=== PATIENT | female | born 1975 | race Caucasian/White ===

== ENCOUNTER → 2020-06-16 16:59 | Outpatient (CLI) | payer OTHER, SELFPAY ==
[2020-06-16 19:56] LABS: Thyroid Stimulating Hormone 0.55 uIU/mL (0.465-4.68)
[2020-06-19 15:05] LABS: Anti-Centromere B Antibodies <0.2 AI (0.0-0.9); Anti-Jo-1 <0.2 AI (0.0-0.9); Anti-Smith Antibody <0.2 AI (0.0-0.9); Antichromatin Antibodies <0.2 AI (0.0-0.9); Antiscleroderma-70 Antibodies <0.2 AI (0.0-0.9); RNP Antibodies 0.4 AI (0.0-0.9); Sjogren's Anti-SS-A <0.2 AI (0.0-0.9); Sjogren's Anti-SS-B <0.2 AI (0.0-0.9)
[2020-06-19 17:21] LABS: Anti-DNA (DS) Ab Qn 2 IU/mL (0-9)
== END ==
PROVIDERS: Visit Provider Family Medicine
DX: E03.9 Hypothyroidism, unspecified (principal); G43.509 Persistent migraine aura without cerebral infarction, not intractable, without status migrainosus
CPT/HCPCS: 84443; 86225; 86235

== ENCOUNTER → 2021-02-17 11:22 | Outpatient (CLI) | payer OTHER, SELFPAY | PROVIDERS: PCP Family Medicine; Visit Provider Family Medicine | DX: Z20.822 Contact with and (suspected) exposure to COVID-19 (principal) | CPT/HCPCS: U0003 ==

== ENCOUNTER → 2021-02-18 13:42 | Outpatient (CLI) | payer OTHER, SELFPAY ==
[2021-02-18 14:04] LABS: Hemoglobin A1C 5.6 % (4.0-6.0)
[2021-02-18 15:50] LABS: Thyroid Stimulating Hormone 0.32 uIU/mL (0.465-4.68)
[2021-02-18 16:08] LABS: Vitamin B12 297 pg/mL (239-931)
== END ==
LOC: LAB.DROPOF 13:43
PROVIDERS: Visit Provider Family Medicine
DX: J32.9 Chronic sinusitis, unspecified (principal)
CPT/HCPCS: 82607; 83036; 84443

== ENCOUNTER 2021-04-14 11:09 | Emergency (ER) | payer OTHER, SELFPAY ==
[2021-04-14] VITALS (9 sets, daily range): BP systolic 117–138; BP diastolic 74–97; PULSE 59–77; RESP 12–18; TEMP 36.6; O2SAT 93–100; BMI 20.3
--- NOTE | 2021-04-14 11:06 | ECG_ITS ---
APPROVED REPORT Exam: Resting ECG HR:68 bpm ECG Measurements Heart Rate 68 AXES WV 164 P 14 QRSd 68 QRS 74 QT 396 T 48 QTc 421 Conclusion Normal sinus rhythm Normal ECG Electronically signed by : Kash Arroyo MD 04/15/2021 17:29:09
--- NOTE | 2021-04-14 11:12 | XR_ITS ---
PROCEDURE: XR CHEST 2V CLINICAL HISTORY: cp sob COMPARISON: No exams were available for comparison FINDINGS: The cardiomediastinal silhouette and pulmonary vascularity are within normal limits. The lungs are clear without infiltrates, suspicious nodules, or pleural effusions. Minimal atelectatic or fibrotic change in the left lung base. No evidence of pneumothorax. Suspect small hiatal hernia. IMPRESSION: No evidence of pneumothorax or other acute anomaly. Dictated by: Loc Monte MD 04/14/2021 11:49 Loc Monte MD in [place] 04/14/2021 11:49
--- NOTE | 2021-04-14 11:25 | HMH.EDCP ---
ED Disposition Clinical Impression: Nonspecific chest pain Disposition: Home, Self-Care Condition on Discharge: Good Instructions: DI for Atypical Chest Pain Referrals: Provider,MD Akil [Primary Care Provider] - Henry Trevizo MD [Staff Physician] - - Critical Care Critical Care Time: No Attestation: On , the high probability of a clinically significant, sudden or life threatening deterioration of the following system(s) required my full and direct attention, intervention and personal management. The time I documented below is in addition to time spent performing reported procedures but includes the following listed in this critical care notation. Medical Decision Making - Medical Records Medical records reviewed: Yes: I reviewed the patient's medical records. - [place] Inquiry Pt receiving controlled substance: No Vital Signs: 04/14/21 11:09 04/14/21 11:30 04/14/21 12:00 Temperature 97.9 F Temperature Source Oral Pulse Rate 65 59 L Pulse Rate [Right Radial] 71 Respiratory Rate 18 12 14 Blood Pressure 120/97 H 120/97 H Blood Pressure [Right Arm] 117/74 Blood Pressure Mean Blood Pressure Mean [Right Arm] 88 Blood Pressure Source [Right Arm] Automatic Cuff Blood Pressure Position [Right Arm] Sitting 02 Sat by Pulse Oximetry 98 98 100 Oxygen Delivery Method Room Air Room Air 04/14/21 12:36 04/14/21 13:00 04/14/21 13:31 Temperature Temperature Source Pulse Rate 77 62 Pulse Rate [Right Radial] Respiratory Rate 16 16 16 Blood Pressure 136/84 138/82 138/85 Blood Pressure [Right Arm] Blood Pressure Mean 114 Blood Pressure Mean [Right Arm] Blood Pressure Source [Right Arm] Blood Pressure Position [Right Arm] 02 Sat by Pulse Oximetry 93 L 100 Oxygen Delivery Method 04/14/21 14:00 04/14/21 14:30 Temperature Temperature Source Pulse Rate 60 59 L Pulse Rate [Right Radial] Respiratory Rate 18 16 Blood Pressure 137/87 120/80 Blood Pressure [Right Arm] Blood Pressure Mean 110 93 Blood Pressure Mean [Right Arm] Blood Pressure Source [Right Arm] Blood Pressure Position [Right Arm] 02 Sat by Pulse Oximetry 99 Oxygen Delivery Method - Lab Data Lab Results 04/14/21 11:43: SARS-CoV-2 (PCR) Not detected, Influenza A Untype (PCR) Not detected, Influenza Type B (PCR) Not detected 04/14/21 11:46: WBC 8.3, RBC 4.66, Hgb 13.9, Hct 43.0, MCV 92.2, MCH 29.8, MCHC 32.3, RDW 13.0, Plt Count 400, MPV 8.1, Neut % (Auto) 68.7, Lymph % (Auto) 24.7, [place] % (Auto) 4.4, Eos % (Auto) 1.5, Baso % (Auto) 0.7, Neut # (Auto) 5.7, Lymph # (Auto) 2.1, [place] # (Auto) 0.4, Eos # (Auto) 0.1, Baso # (Auto) 0.1 04/14/21 11:46: Sodium 138, Potassium 4.2, Chloride 103, Carbon Dioxide 25, Anion Gap 14.2, BUN 11, Creatinine 0.60, Estimated Creat Clear 109, Estimated GFR 108, Est GFR ( Amer) 130, Glucose 99, Calcium 9.3, Troponin I < 0.01 04/14/21 14:05: Troponin I < 0.01 Result diagrams: 04/14/21 11:46 04/14/21 11:46 Orders (Tests/Meds): ED MEDICATIONS Discontinued Medications Generic Name Dose Route Start Last Admin Trade Name Freq PRN Reason Stop Dose Admin Iopamidol 70 ml 04/14/21 12:33 04/14/21 12:34 Iopamidol-370 (76%);100ml Bottle IV 04/14/21 12:34 70 ml ONCE ONE Administration Sodium Chloride 50 ml 04/14/21 12:33 04/14/21 12:34 0.9 % Sodium Chloride 50 Ml Vial IV 04/14/21 12:34 50 ml ONCE ONE Administration Sodium Chloride 10 ml 04/14/21 12:33 04/14/21 12:34 Sodium Chloride 0.9% 10ml Syr (Rad Only) IV 04/14/21 12:34 10 ml ONCE ONE Administration ORDERS Category Date Time Status Troponin I Q3H Lab 04/14/21 17:15 Ordered - Radiology Data #1 Image(s): Chest Image Reviewed: Yes I reviewed the patient's radiology results, Yes I reviewed the patient's radiology image, Yes I have reviewed radiologist's interpretation Preliminary Findings: Normal/NAD - CT Data CT Scan: Chest Time Re
--- NOTE | 2021-04-14 11:53 | CT_ITS ---
PROCEDURE: CT ANGIO CHEST PE PROTOCOL CLINCIAL INDICATION: SOB, chest pain COMPARISON: CR XR CHEST 2V from 04/14/2021 TECHNIQUE: IV Contrast: 70ML Isovue 370 Axial images obtained with sagittal and coronal reformats. All CT scans at the facility use one or more dose reduction, viz: automated exposure control, ma/kV adjustment per patient size (including targeted exams where dose is matched to indication, i.e. head), or iterative reconstruction technique. FINDINGS: HEART AND MEDIASTINAL STRUCTURES: No evidence of pulmonary embolus, aortic aneurysm, or aortic dissection. Mildly prominent precarinal lymph nodes are present measuring 2.9 x 1.2 cm with calcification. Small aortopulmonic nodes are also noted. LUNGS AND PLEURAL SPACES: No lobar consolidation or collapse. In the right lung base along the hemidiaphragm centrally there is an area air density possibly due to small pneumatocele BONY STRUCTURES: No acute bony abnormalities apparent. 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 The SMA has an unremarkable appearance. There is a small hiatal hernia. ADDITIONAL FINDINGS: No other significant abnormalities. IMPRESSION: 1. No evidence of pulmonary embolus. 2. 2.2 x 1 cm area of air density along the right lung base at the diaphragmatic region with some pleural thickening at this area. This may be due to small pneumatocele. A tiny pneumothorax would be included in the differential diagnosis. A pneumoperitoneum is felt to be less likely. 3. Hiatal hernia 4. 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 Dictated by: Loc Monte MD 04/14/2021 13:04 Loc Monte MD in [place] 04/14/2021 13:04
[2021-04-14 11:54] LABS: Coronavirus 19, PCR Not Detected (NotDetected); Influenza A, PCR Not Detected (NotDetected); Influenza B, PCR Not Detected (NotDetected)
[2021-04-14 11:55] LABS: Basophils # 0.1 K/mm3 (0-0.2); Basophils % 0.7 % (0.1-2.0); Eosinophils # 0.1 K/mm3 (0.0-0.4); Eosinophils % 1.5 % (0.1-12.0); Hemoglobin 13.9 g/dL (12.2-16.2); Lymphocytes # 2.1 K/mm3 (0.7-4.5); Lymphocytes % 24.7 % (10-50); Mean Corpuscular HGB Conc 32.3 g/dL (31.8-35.4); Mean Corpuscular Hemoglobin 29.8 pg (27.0-31.2); Mean Corpuscular Volume 92.2 fl (81-99); Mean Platelet Volume 8.1 fl (7.4-10.4); Monocytes # 0.4 K/mm3 (0.1-1.0); Monocytes % 4.4 % (1.7-9.3); Neutrophils # 5.7 K/mm3 (1.8-7.8); Neutrophils % 68.7 % (37.0-80.0); Platelet Count 400 K/mm3 (142-424); Red Blood Count 4.66 M/mm3 (4.20-5.40); White Blood Count 8.3 K/mm3 (4.8-10.8)
[2021-04-14 12:00] LABS: Chloride 103 mmol/L (98-107); Potassium 4.2 mmoL/L (3.5-5.1); Sodium 138 mmol/L (136-145)
[2021-04-14 12:03] LABS: Anion Gap 14.2 mEq/L (5-15); Blood Urea Nitrogen 11 mg/dl (7-17); Calcium 9.3 mg/dl (8.4-10.2); Carbon Dioxide 25 mmol/L (22.0-30.0); Creatinine Clearance Estimated 109 mL/min (50-200); Estimated Glomerular Filt Rate 108 ml/min (>60); GFR (African American) 130 ML/MIN (>60); Glucose 99 mg/dl (74-100)
--- NOTE | 2021-04-14 12:10 | PC.NURSE ---
notified rad of CT order
[2021-04-14 12:18] LABS: Troponin I < 0.01 ng/ml (0.00-0.034)
[2021-04-14 14:43] LABS: Troponin I < 0.01 ng/ml (0.00-0.034)
== END 2021-04-14 15:18 | disposition home or self-care (01) ==
PROVIDERS: Emergency Provider Emergency Medicine
DX: R07.89 Other chest pain (principal); Z20.822 Contact with and (suspected) exposure to COVID-19; J44.9 Chronic obstructive pulmonary disease, unspecified; G43.709 Chronic migraine without aura, not intractable, without status migrainosus; Z88.0 Allergy status to penicillin; Z88.2 Allergy status to sulfonamides; Z88.8 Allergy status to other drugs, medicaments and biological substances
CPT/HCPCS: 36415; 71046; 71275; 80048; 84484; 85025; 93005; 99283; C9803; Q9967; U0003; U0005

== ENCOUNTER → 2021-04-15 13:04 | Outpatient (CLI) | payer OTHER, SELFPAY ==
--- NOTE | 2021-04-15 13:09 | XR_ITS ---
PROCEDURE: XR CHEST 2V CLINICAL HISTORY: r/o pneumothorax The the COMPARISON: CR XR CHEST 2V from 04/14/[address] ANGIO CHEST PE PROTOCOL from 04/14/2021 FINDINGS: The cardiomediastinal silhouette and pulmonary vascularity are within normal limits. The lungs are clear without infiltrates, suspicious nodules, or pleural effusions. No acute bony abnormalities. IMPRESSION: No acute findings. Dictated by: Loc Monte MD 04/15/2021 15:21 Loc Monte MD in [facility] 04/15/2021 15:21
== END ==
LOC: RAD 13:05
PROVIDERS: PCP Family Medicine; Visit Provider Physician Assistant
DX: R06.02 Shortness of breath (principal); Z87.09 Personal history of other diseases of the respiratory system
CPT/HCPCS: 71046

== ENCOUNTER → 2021-04-21 09:24 | Outpatient (CLI) | payer OTHER, SELFPAY ==
[2021-04-21 10:40] LABS: Alanine Aminotransferase 22 U/L (12-78); Albumin Level 4.5 g/dl (3.5-5.0); Alkaline Phosphatase 109 U/L (38-126); Aspartate Amino Transferase 25 U/L (14-36); Bilirubin,Direct 0.2 mg/dl (0.0-0.4); Bilirubin,Indirect 0.6 mg/dL (0.0-0.9); Bilirubin,Total 0.8 mg/dl (0.2-1.3); Bilirubin,Unconjugated 0.6 mg/dL (0.0-1.1); Chol/HDL Ratio 2.6 (1-3.5); Cholesterol 238 mg/dl (140-200); HDL Cholesterol 90 mg/dl (40-60); Triglycerides 184 mg/dl (30-150); VLDL Cholesterol 37 mg/dL (0-40)
[2021-04-21 10:51] LABS: Direct LDL Cholesterol 107.72 mg/dL (100-129)
== END ==
LOC: LAB 09:25
PROVIDERS: Visit Provider Nurse Practitioner Family
DX: R07.9 Chest pain, unspecified (principal)
CPT/HCPCS: 36415; 80061; 80076

== ENCOUNTER → 2021-04-26 13:24 | Outpatient (CLI) | payer OTHER, SELFPAY ==
--- NOTE | 2021-04-26 | CA_ITS ---
APPROVED REPORT Exam: Exercise Treadmill Technologist: Lotus Leonard Ht: 5 ft 7 in Wt: 134 lbs BSA: 1.71 m2 HR: 82 bpm BP: 114/73 mmHg Indications: Sinus Bradycardia, Chest pain Medical History Medications: Albuterol,,,,, ProMETHAZINE,,,,, INdomethacin,,,,, ClINDAMYCIN,,,,, Levothyoxine,,,,, Stress Test Details Test: Rayna HR Resting HR: 74 bpm Max Heart Rate (APMHR): 174 bpm Max HR Achieved: 167 bpm Target HR (85% APMHR): 147 bpm % of APMHR: 95 Recovery HR: 90 bpm BP Resting BP: 114.0/73.0 mmHg Max BP: 146.0/80.0 mmHg Recovery BP: 121.0/70.0 mmHg ECG Resting ECG: Normal sinus rhythm Clinical Reason for Termination: Dyspnea Exercise duration: 07:16 min Highest Stage Achieved: Exercise capacity: 10.1 METs Stress ECG Conclusion Negative stress test. Patient exercised on a rayna protocol for 7 minutes and 16 seconds to peak heart rate of 167 bpm (Target heart rate 148 bpm) without chest pain. Frequent PVC's and rare couplet noted in stress and recovery. 1.[address] segment depression infero-laterally at peak stress that resolved quickly in recovery. Total METS acheived was 10.1 with peak blood pressure 146/80 mmHg. No imaging. Normal exercise treadmill stress test. Test Summary REST . . . . . . . Sitting REST . . . . . . . Standing REST 07:03 0.0 0.0 74 . 114/ 73 . . Stage 1 01:00 10.0 1.7 104 . . . . Stage 1 02:00 10.0 1.7 119 . . . . Stage 1 03:00 10.0 1.7 124 . 128/ 80 . . Stage 2 01:00 12.0 2.5 147 . . . . Stage 2 02:00 12.0 2.5 149 . . . . Stage 2 03:00 12.0 2.5 150 . 140/ 90 . . Stage 3 01:00 14.0 3.4 166 . . . . Stage 3 01:16 14.0 3.4 167 . . . Stop exercise at 07:16 RECOVERY 01:00 0.0 0.0 136 . . . . RECOVERY 02:00 0.0 0.0 105 . 146/ 80 . . RECOVERY 03:00 0.0 0.0 105 . 146/ 80 . . RECOVERY 04:00 0.0 0.0 98 . 146/ 80 . . RECOVERY 05:00 0.0 0.0 93 . 146/ 80 . . RECOVERY 06:00 0.0 0.0 87 . 146/ 80 . . RECOVERY 06:33 0.0 0.0 88 . 146/ 80 . . Electronically signed by : Jett Verde MD 04/26/2021 18:17:01
--- NOTE | 2021-04-26 14:08 | CA_ITS ---
APPROVED REPORT EXAM: Comprehensive 2D, Doppler, and color-flow Echocardiogram Communications Program Manager: Svitlana Novak RDCS Ht: 5 ft 7 in Wt: 134lbs BSA: 1.71 BP: 126/74 mmHg Indications: CP,BRADYCARDIA,COPD,EX SMOKER,[place] 2D Dimensions LVOT 1.68 cm (M/F) 1.5-2.5 M-Mode Dimensions RVDd 2.05 cm (0.9-2.6) LA Diam 2.67 cm (1.9-4.0) LVDd 3.98 cm (3.5-5.7) Ao Diam 2.67 cm (2.0-3.7) LVDs 3.11 cm (3.5-5.7) IVSd 0.64 cm (0.6-1.1) PWd 0.57 cm (0.6-1.1) EF (Teich) 44.80% FS 21.90% EDV (Teich) 69.20 mL ESV (Teich) 38.20 mL LV Diastology E Decel Time 217.00 (160-240 msec) E/A Ratio 1.1 MED E' 13.00 (< 7 cm/sec) E'/MED E' Ratio 5.58 (>14) LAT E' 16.30 (<10 cm/sec) E/LAT E' Ratio 4.45 (>14) Mitral Valve MV E Max Ori. 73.00 (40-130 cm/s) MV A Velocity 67.00 (40-130 cm/s) E/A Ratio 1.08 MV Decel. Time 217.00 (160-240 ms) MV PHT 63.00 ms Left Ventricle Left atrium is normal size, left ventricle is normal size, there is no concentric left ventricular hypertrophy, visually estimated ejection fraction 55% with no regional wall motion abnormality, diastolic parameters are within normal range. Right Ventricle Right atrium and right ventricle are normal size and contractility. Aortic Valve Aortic valve is grossly normal, there is no aortic stenosis or aortic insufficiency. Mitral Valve Mitral valve grossly normal, there is trace mitral regurgitation. Tricuspid Valve Tricuspid valve grossly normal, there is trace tricuspid regurgitation, tricuspid regurgitation jet velocity is inadequate for calculation of the right ventricular systolic pressure. Pulmonic Valve Pulmonic valve is poorly visualized. Great Vessels Aortic root is normal size. Inferior vena cava is normal size with normal inspiratory collapse. Pericardium No significant pericardial effusion noted. Conclusion 1. Normal left ventricular size, preserved left ventricular systolic function, visually estimated ejection fraction 55% with no regional wall motion abnormality, diastolic parameters are within normal range. 2. Trace mitral and tricuspid regurgitation. 3. No significant pericardial effusion noted. 4. Inferior vena cava is normal size with normal inspiratory collapse. Electronically signed by : Jett Verde MD 04/26/2021 19:14:33
== END ==
PROVIDERS: PCP Family Medicine; Visit Provider Nurse Practitioner Family
DX: R00.1 Bradycardia, unspecified (principal); J44.9 Chronic obstructive pulmonary disease, unspecified; M79.602 Pain in left arm; Z87.891 Personal history of nicotine dependence; R07.89 Other chest pain
CPT/HCPCS: 93017; 93306

== ENCOUNTER → 2021-10-14 14:12 | Outpatient (CLI) | payer OTHER, SELFPAY ==
--- NOTE | 2021-10-14 14:13 | MR_ITS ---
FINAL REPORT CLINICAL HISTORY: attn: pituitary. F/U PITUITARY TUMOR. CHRONIC MIGRAINE. 13ML PROHANCE GIVEN. FINDINGS: Multiplanar MR imaging of the brain was performed without and with contrast. There is no evidence of intracranial hemorrhage or mass. There are a few small scattered foci of increased signal in the deep white matter bilaterally, nonspecific. No abnormal extra-axial fluid collection is seen. The ventricular size is within normal limits. There is no evidence of shift of the midline structures. The posterior fossa and brainstem have an unremarkable appearance. No area of abnormal restricted diffusion is identified. The pituitary infundibulum lies midline. There is a mass in the pituitary which is ovoid and partially bilobed measuring approximately 8 mm in transverse dimension and 4 mm in craniocaudal dimension. Finding is well-seen on image 5 of series 14 and image 7 of series 15, probably represents a microadenoma. No other abnormal enhancement is identified. IMPRESSION: 8 mm x 4 mm pituitary nodule, favor to represent an adenoma. No priors are available for direct comparison. Mild abnormal signal in the deep white matter which is nonspecific, probably due to chronic microvascular ischemia. Reviewed, Interpreted and Dictated by Sukhi Drew MD Transcribed by Jannie Rodrigues Authenticated by Sukhi Drew MD on 10/14/2021 04:38:50 PM [facility]
== END ==
LOC: RAD 14:13
PROVIDERS: PCP Family Medicine; Visit Provider Family Medicine
DX: D35.2 Benign neoplasm of pituitary gland (principal)
CPT/HCPCS: 70553; A9576

== ENCOUNTER 2021-11-15 16:47 | Emergency (ER) | payer OTHER, SELFPAY ==
[2021-11-15 16:48] VITALS: BP 139/89; PULSE 64; RESP 16; TEMP 36.5; O2SAT 98; BMI 21.9
--- NOTE | 2021-11-15 17:25 | PC.NURSE ---
notified ER MD of pt presenting symptom of LUE tingling, ER MD states not to order head CT at this time for pt.
--- NOTE | 2021-11-15 17:30 | ECG_ITS ---
APPROVED REPORT Exam: Resting ECG HR:55 bpm ECG Measurements Heart Rate 55 AXES WA 172 P 66 QRSd 80 QRS 54 QT 423 T 47 QTc 413 Conclusion SINUS BRADYCARDIA LOW QRS VOLTAGE IN PRECORDIAL LEADS [QRS DEFLECTION < 1.0 mV IN CHEST LEADS] BORDERLINE ECG UNCONFIRMED REPORT Electronically signed by : Kash Arroyo MD 11/18/2021 08:07:52
[2021-11-15 17:47] LABS: Basophils # 0.2 K/mm3 (0-0.2); Basophils % 1.2 % (0.1-2.0); Eosinophils # 0.1 K/mm3 (0.0-0.4); Hematocrit 40.8 % (37.0-47.0); Hemoglobin 13.5 g/dL (12.2-16.2); Lymphocytes % 28.4 % (10-50); Mean Corpuscular HGB Conc 33.2 g/dL (31.8-35.4); Mean Corpuscular Hemoglobin 30.1 pg (27.0-31.2); Mean Corpuscular Volume 90.7 fl (81-99); Mean Platelet Volume 7.6 fl (7.4-10.4); Monocytes # 0.8 K/mm3 (0.1-1.0); Monocytes % 5.5 % (1.7-9.3); Neutrophils % 63.9 % (37.0-80.0); Platelet Count 442 K/mm3 (142-424); Red Blood Count 4.49 M/mm3 (4.20-5.40); Red Cell Distribution Width 13.6 % (11.5-17.5)
[2021-11-15 18:00] LABS: Chloride 105 mmol/L (98-107)
[2021-11-15 18:01] LABS: Potassium 3.6 mmoL/L (3.5-5.1); Sodium 138 mmol/L (136-145)
[2021-11-15 18:03] LABS: Alanine Aminotransferase 22 U/L (12-78); Albumin Level 4.2 g/dl (3.5-5.0); Albumin/Globulin Ratio 1.4 (1.1-1.8); Alkaline Phosphatase 93 U/L (38-126); Aspartate Amino Transferase 26 U/L (14-36); Bilirubin,Total 0.5 mg/dl (0.2-1.3); Blood Urea Nitrogen 22 mg/dl (7-17); Creatinine Clearance Estimated 87 mL/min (50-200); Estimated Glomerular Filt Rate 77 ml/min (>60); GFR (African American) 93 ML/MIN (>60); Globulin 3.1 g/dL (1.3-3.2); Total Protein,Serum 7.3 g/dl (6.3-8.2)
[2021-11-15 18:04] LABS: Anion Gap 8.6 mEq/L (5-15); Calcium 9.3 mg/dl (8.4-10.2); Carbon Dioxide 28 mmol/L (22.0-30.0); Glucose 120 mg/dl (74-100)
[2021-11-15 18:20] LABS: Troponin I < 0.01 ng/ml (0.00-0.034)
--- NOTE | 2021-11-15 18:58 | XR_ITS ---
PROCEDURE INFORMATION: Exam: XR Chest Exam date and time: 11/15/2021 7:00 PM Age: 46 years old Clinical indication: Other: Left arm tingling; Additional info: Left arm tingling, hot flash TECHNIQUE: Imaging protocol: XR of the chest. Views: 2 views. COMPARISON: CR XR CHEST 2V 04/15/2021 1:17 PM FINDINGS: Lungs: Unremarkable. No consolidation. Pleural spaces: Unremarkable. No pleural effusion. No pneumothorax. Heart/Mediastinum: Unremarkable. No cardiomegaly. Bones/joints: Unremarkable. IMPRESSION: No acute findings.
[2021-11-15 19:00] VITALS: BP 146/86; PULSE 54; O2SAT 100
[2021-11-15 19:31] VITALS: BP 127/79; PULSE 57; O2SAT 100
--- NOTE | 2021-11-15 19:39 | HMH.EDGENADL ---
ED Disposition Clinical Impression: Vasovagal attack Disposition: Home, Self-Care Condition on Discharge: Good Additional Instructions: Please ask your primary care physician regarding a quality assurance monitor to assess for cardiac arrhythmia or abnormal heart rhythm if you continue experiencing these episodes. If your condition worsens or any other concerns arise, please return to the emergency department for reassessment. Otherwise, follow-up with your primary care physician regarding your thyroid levels. Referrals: Henrique Edwards MD [Primary Care Provider] - - Critical Care Critical Care Time: No Attestation: On 11/15/21, the high probability of a clinically significant, sudden or life threatening deterioration of the following system(s) required my full and direct attention, intervention and personal management. The time I documented below is in addition to time spent performing reported procedures but includes the following listed in this critical care notation. Medical Decision Making - Medical Records Medical records reviewed: Yes: I reviewed the patient's medical records. - [place] Inquiry Pt receiving controlled substance: No Vital Signs: 11/15/21 16:48 11/15/21 19:00 11/15/21 19:31 Temperature 97.7 F Temperature Source Oral Pulse Rate 54 L 57 L Pulse Rate [Right Radial] 64 Respiratory Rate 16 Blood Pressure 146/86 H 127/79 Blood Pressure [Right Arm] 139/89 Blood Pressure Mean [Right Arm] 105 Blood Pressure Source [Right Arm] Automatic Cuff Blood Pressure Position [Right Arm] Sitting 02 Sat by Pulse Oximetry 98 100 100 Oxygen Delivery Method Room Air Room Air Room Air 11/15/21 20:00 Temperature Temperature Source Pulse Rate 56 L Pulse Rate [Right Radial] Respiratory Rate Blood Pressure 172/88 H Blood Pressure [Right Arm] Blood Pressure Mean [Right Arm] Blood Pressure Source [Right Arm] Blood Pressure Position [Right Arm] 02 Sat by Pulse Oximetry 100 Oxygen Delivery Method Room Air - Lab Data Lab results reviewed: Yes: I reviewed the patient's lab results. Lab Results 11/15/21 17:30: WBC 14.0 H, RBC 4.49, Hgb 13.5, Hct 40.8, MCV 90.7, MCH 30.1, MCHC 33.2, RDW 13.6, Plt Count 442 H, MPV 7.6, Neut % (Auto) 63.9, Lymph % (Auto) 28.4, [place] % (Auto) 5.5, Eos % (Auto) 1.0, Baso % (Auto) 1.2, Neut # (Auto) 9.0 H, Lymph # (Auto) 4.0, [place] # (Auto) 0.8, Eos # (Auto) 0.1, Baso # (Auto) 0.2 11/15/21 17:30: Sodium 138, Potassium 3.6, Chloride 105, Carbon Dioxide 28, Anion Gap 8.6, BUN 22 H, Creatinine 0.80, Estimated Creat Clear 87, Estimated GFR 77, Est GFR ( Amer) 93, Glucose 120 H, Calcium 9.3, Total Bilirubin 0.5, AST 26, ALT 22, Alkaline Phosphatase 93, Troponin I < 0.01, Total Protein 7.3, Albumin 4.2, Globulin 3.1, Albumin/Globulin Ratio 1.4 11/15/21 17:30: D-Dimer 0.47 11/15/21 17:30: TSH 0.09 L, Thyroxine (T4) 11.4 H Result diagrams: 11/15/21 17:30 11/15/21 17:30 Orders (Tests/Meds): ED MEDICATIONS Generic Name Dose Route Start Last Admin Trade Name Freq PRN Reason Stop Dose Admin Sodium Chloride 10 ml 11/15/21 17:26 Sodium Chloride 0.9% 10ml Flush Syringe IV 12/15/21 17:25 NEEDED PRN Maintain IV Site ORDERS Category Date Time Status Rapid PCR Covid and Flu A/B Stat Lab 11/15/21 20:49 Ordered Troponin I Q3H Lab 11/15/21 20:43 Received Troponin I Q3H Lab 11/15/21 23:30 Ordered Medical Decision Narrative: Patient is a 46-year-old female presenting with a chief complaint of episodes consisting of shortness of breath, tingling of the left upper extremity associated with nausea and flushing. Patient states she has a history of migraines and sometimes does get left upper extremity tingling but that has now resolved. She has no other neurological deficits and her neurological exam is nonfocal. Intact cerebellar function. Normal gait. Differential diagnosis includes, but is not limited to, vasovagal presyncope/response, adve
[2021-11-15 19:48] LABS: D-Dimer 0.47 ug/mL (0.0-0.5)
[2021-11-15 20:00] VITALS: BP 172/88; PULSE 56; O2SAT 100
[2021-11-15 20:02] LABS: T4 (Thyroxine) 11.4 ug/dl (5.53-11.0)
--- NOTE | 2021-11-15 20:06 | PC.NURSE ---
Pt advised no new needs at this time.
[2021-11-15 20:15] LABS: Thyroid Stimulating Hormone 0.09 uIU/mL (0.465-4.68)
[2021-11-15 21:33] VITALS: BP 129/81; O2SAT 100
[2021-11-15 21:37] VITALS: BP 129/81; PULSE 57; RESP 16; TEMP 36.5; O2SAT 100
[2021-11-15 22:13] LABS: Troponin I < 0.01 ng/ml (0.00-0.034)
== END 2021-11-15 21:39 | disposition home or self-care (01) ==
PROVIDERS: Emergency Provider Emergency Medicine; PCP Family Medicine
DX: R42 Dizziness and giddiness (principal); R06.02 Shortness of breath; J44.9 Chronic obstructive pulmonary disease, unspecified; Z87.891 Personal history of nicotine dependence
CPT/HCPCS: 71046; 80053; 84436; 84443; 84484; 85025; 85378; 93005; 99283

== ENCOUNTER 2022-01-08 18:01 | Emergency (ER) | payer OTHER, SELFPAY ==
[2022-01-08 18:47] VITALS: BP 144/83; PULSE 78; RESP 18; TEMP 36.9; O2SAT 98; BMI 21.9
--- NOTE | 2022-01-08 18:54 | HMH.EDUTC ---
[facility] – [place] Disposition Clinical Impression: Viral syndrome, Exposure to COVID-19 virus Disposition: Home, Self-Care Condition on Discharge: Good Instructions: DI for COVID-19 (Suspected or Confirmed ), Preventing the Spread of Coronavirus Discharge Instructions Additional Instructions: Drink plenty of fluids. Take tylenol for pain or fever. Return if you begin to have difficulty breathing. Follow up with your regular doctor. GO TO THE ER FOR ANY WORSENING SYMPTOMS Quarantine until you know the results of your covid-19 test. If it is positive, the health department should call you and give you further instructions about your length of Quarantine and other things. Notify your school or workplace of your results and follow their instructions regarding return to work/school. Prescriptions: Ondansetron [Zofran 4mg ODT] 4 mg PO Q8HP PRN #20 tab PRN Reason: Nausea Transmission Status: Received by [facility] #[id number] Benzonatate [Benzonatate 100mg cap] 100 mg PO TIDP PRN #30 cap PRN Reason: Cough Transmission Status: Received by [facility] #[id number] Referrals: Henrique Edwards MD [Primary Care Provider] - Time of Disposition: 19:03 Medical Decision Making - Medical Records Medical records reviewed: No: I reviewed the patient's medical records. - [place] Inquiry Pt receiving controlled substance: No Vital Signs: 01/08/22 18:47 01/08/22 19:05 Temperature 98.4 F 98.4 F Temperature Source Oral Pulse Rate 78 Pulse Rate [Left Radial] 78 Respiratory Rate 18 18 Blood Pressure 144/83 H Blood Pressure [Right Arm] 144/83 H Blood Pressure Mean [Right Arm] 103 02 Sat by Pulse Oximetry 98 [facility] – [place] HPI - General Stated complaint: COVID TEST Time Seen by Provider: 01/08/22 18:54 Description of Symptoms (Recalled from Triage Doc. by RN): patient comes in today for covid test. patient took an at home test today and it was positive HEENT Symptoms (Recalled from RN notes): Yes Resp Symptoms (Recalled from RN notes): No Skin Symptoms (Recalled from RN notes): No MS Symptoms (Recalled from RN notes): No Functional Status (Recalled from RN notes): wnl - History of Present Illness Provider Complaint: She is here after being exposed to covid several days ago. She states that she is having body aches and she feels fatigued. - Related Data Previous Rx's Medication Instructions Recorded albuterol sulfate 90 mcg/actuation 2 puff INHALATION QID PRN #8.5 g 05/03/21 aerosol inhaler atorvastatin 20 mg tablet 20 mg PO DAILY #30 tab 05/03/21 hexbiwrxkl-arjjzwuvlcnkv-ainwdiif 1 cap PO TID PRN #30 cap 09/30/21 50 mg-300 mg-40 mg capsule hydrocodone 5 mg-acetaminophen 325 1 tab PO Q8H PRN #21 tab 09/30/21 mg tablet levothyroxine 112 mcg tablet 112 mcg PO DAILY #90 tab 09/30/21 diphenhydramine HCl 25 mg capsule 50 mg PO Q6H PRN #90 cap 11/23/21 famotidine 40 mg tablet 40 mg PO BID #60 tab 11/23/21 methylprednisolone 4 mg tablets in See Rx Instructions PO PER PKG DIR 11/23/21 a dose pack #21 tab tiotropium bromide 18 mcg capsule 1 cap INHALATION DAILY #90 puff 11/23/21 with inhalation device Benzonatate [Benzonatate 100mg 100 mg PO TIDP PRN #30 cap 01/08/22 cap] Ondansetron [Zofran 4mg ODT] 4 mg PO Q8HP PRN #20 tab 01/08/22 Allergies Allergy/AdvReac Type Severity Reaction Status Date / Time clindamycin AdvReac Severe Verified 01/08/22 18:51 Escitalopram Allergy Unknown Uncoded 11/23/21 16:10 From Penicillin V Potassium Allergy Unknown Uncoded 11/23/21 16:10 Morphine Allergy Unknown Uncoded 11/23/21 16:10 Penicillin Allergy Unknown Uncoded 11/23/21 16:10 SULFA (sulfonamide) Allergy Unknown Uncoded 11/23/21 16:10 Sulfamethoxazole Allergy Unknown Uncoded 11/23/21 16:10 Trimethoprim Allergy Unknown Uncoded 11/23/21 16:10 - Worker's Comp Is this a Worker's Comp case?: No H History - Hepatitis A Screen Attestation statement:: This patient has been screened
[2022-01-08 19:05] VITALS: BP 144/83; PULSE 78; RESP 18; TEMP 36.9
== END 2022-01-08 19:08 | disposition home or self-care (01) ==
PROVIDERS: Emergency Provider Nurse Practitioner Family; PCP Family Medicine
DX: U07.1 COVID-19 (principal); M79.10 Myalgia, unspecified site; R53.82 Chronic fatigue, unspecified; G43.909 Migraine, unspecified, not intractable, without status migrainosus; J44.9 Chronic obstructive pulmonary disease, unspecified; Z79.51 Long term (current) use of inhaled steroids; Z88.0 Allergy status to penicillin; Z88.2 Allergy status to sulfonamides; Z88.5 Allergy status to narcotic agent; Z88.8 Allergy status to other drugs, medicaments and biological substances; Z85.9 Personal history of malignant neoplasm, unspecified; Z87.891 Personal history of nicotine dependence; Z82.49 Family history of ischemic heart disease and other diseases of the circulatory system; Z80.9 Family history of malignant neoplasm, unspecified
CPT/HCPCS: 99213; C9803; G0463; U0003; U0005

== ENCOUNTER → 2023-01-25 11:28 | Outpatient (CLI) | payer OTHER, SELFPAY ==
[2023-01-25 19:27] LABS: T4 (Thyroxine) 14.1 ug/dl (5.53-11.0)
[2023-01-25 19:41] LABS: Thyroid Stimulating Hormone 0.02 uIU/mL (0.465-4.68)
== END ==
LOC: LAB.DROPOF 01-26 07:01
PROVIDERS: PCP Family Medicine; Visit Provider Family Medicine
DX: M25.522 Pain in left elbow (principal); Z79.899 Other long term (current) drug therapy; Z76.0 Encounter for issue of repeat prescription
CPT/HCPCS: 84436; 84443

== ENCOUNTER 2023-08-18 09:35 | Emergency (ER) | payer OTHER, SELFPAY ==
[2023-08-18 09:50] VITALS: BP 108/71; PULSE 93; RESP 18; TEMP 36.8; O2SAT 99; BMI 24.2
--- NOTE | 2023-08-18 10:04 | ED_ITS ---
Discharge Plan Disposition Patient Disposition: Home, Self-Care Condition: Good Prescriptions Prescriptions: New azithromycin [Zithromax] 250 mg tablet 250 mg PO UD DOSE PK Qty: 6 0RF Rx Instructions: Take two (2) tablets today, then one (1) tablet days #2 thru #5 benzonatate [benzonatate] 100 mg capsule 100 mg PO TIDP PRN (Reason: Cough) Qty: 30 0RF methylprednisolone 4 mg Tablets,Dose Pack 4 mg PO DIRECTED 6 Days Qty: 21 0RF Rx Instructions: Take 1 pack as directed for 6 days No Action Emgality Pen 120 mg/mL pen injector 120 mg SQ QMONTH Qty: 1 10RF Spiriva with HandiHaler 18 mcg capsule, w/inhalation device 1 cap INHALATION DAILY Qty: 90 10RF Rx Instructions: puncture 1 cap using device; one dose = 2 inhalations xyvkomnaxi-kmokdtkroikmc-ngry [Fioricet] 50-300-40 mg capsule 1 cap PO Q4-6H PRN (Reason: pain) Qty: 60 3RF propranolol 80 mg capsule,extended release 24 hr 80 mg PO DAILY Qty: 90 3RF levothyroxine [Synthroid] 88 mcg tablet 88 mcg PO DAILY Qty: 90 3RF hydrocodone-acetaminophen 5-325 mg tablet See Rx Instructions PO BID PRN (Reason: pain) Qty: 30 0RF Rx Instructions: one daily prn severe migraine unrelieved by other medications albuterol sulfate 90 mcg/actuation HFA aerosol inhaler 2 puff INHALATION QID PRN (Reason: shortness of breath or wheezing) Qty: 8.5 10RF Nurtec ODT 75 mg tablet,disintegrating 75 mg PO ONCE PRN (Reason: migraine headache) Qty: 15 10RF Referrals Follow up/Referrals: Henrique Edwards MD [Primary Care Provider] - See instructions Activity Restrictions/Add. Instructions Additional Instructions/Restrictions: Drink plenty of fluids. Take tylenol or ibuprofen for pain or fever. Take the medications as directed. Follow up with your regular doctor. GO TO THE ER FOR ANY WORSENING SYMPTOMS Clinical Impressions Clinical Impression: Bronchitis, Sinusitis, Acute viral syndrome Stand Alone Forms Stand Alone Forms: Work/School Release Instructions Patient Instructions: DI for Sinusitis Discharge ED Provider: Joel Biswas [facility] HPI General Stated complaint: fever 103, sore throat Time Seen by Provider: 08/18/23 10:04 History of Present Illness Provider Complaint: She states that for the past 3 days she has had sore throat, body aches, chills, cough, and malaise. Related Data Previous Rx's Medication Instructions Recorded Fioricet 50 mg-300 mg-40 mg 1 cap PO Q4-6H PRN pain #60 caps 01/25/23 capsule (wwghzdhglk-itgxirtiufdbs-fqxd) galcanezumab-gnlm 120 mg/mL 120 mg SQ QMONTH #1 mL 01/25/23 subcutaneous pen injector (Emgality Pen) tiotropium bromide 18 mcg capsule 1 cap inhalation DAILY #90 puffs 01/25/23 with inhalation device (Spiriva with HandiHaler) albuterol sulfate 90 mcg/actuation 2 puff inhalation QID PRN 08/07/23 aerosol inhaler shortness of breath or wheezing #8.5 grams hydrocodone 5 mg-acetaminophen 325 See Rx Instructions PO BID PRN 08/07/23 mg tablet pain #30 tabs levothyroxine 88 mcg tablet 88 mcg PO DAILY #90 tabs 08/07/23 (Synthroid) propranolol 80 mg capsule,24 80 mg PO DAILY #90 caps 08/07/23 hr,extended release rimegepant 75 mg disintegrating 75 mg PO ONCE PRN migraine 08/07/23 tablet (Nurtec ODT) headache #15 tabs azithromycin 250 mg tablet 250 mg PO UD DOSE PK #6 tabs 08/18/23 (Zithromax) benzonatate 100 mg capsule 100 mg PO TIDP PRN Cough #30 caps 08/18/23 methylprednisolone 4 mg tablets in 4 mg PO DIRECTED 6 days #21 tabs 08/18/23 a dose pack Allergies Allergy/AdvReac Type Severity Reaction Status Date / Time clindamycin AdvReac Severe Verified 08/18/23 10:10 Escitalopram Allergy Unknown Uncoded 08/07/23 14:48 From Penicillin V Potassium Allergy Unknown Uncoded 08/07/23 14:48 Morphine Allergy Unknown Uncoded 08/07/23 14:48 Penicillin Allergy Unknown Uncoded 08/07/23 14:48 SULFA (sulfonamide) Allergy Unknown Uncoded 08/07/23 14:48 Sulfamethoxazole Allergy Unknown Uncoded 08/07/23 14:48 Trimethoprim Allergy Unknown Uncoded 08/07/23 14:48 [facility] Disclaimer: The information contained in this section may have been updated after the patient was seen, as this information can be updated by other users. Medical History Chest pain COPD (chronic obstructive pulmonary disease) Dyspnea Ex-smoker Left arm pain Sinus bradycardia Social History Smoking Status: Former smoker alcohol intake: never substance use type: denies use current occupational status: employed Travel in the last 8 weeks: None ROS Obtained: Yes All systems reviewed & no additional complaints except as documented Constitutional Constitutional: Reports poor appetite Eyes Eyes: Reports system reviewed and no additional complaints, except as documented ENT Ears, Nose, Mouth, and Throat: Reports as per HPI Cardiovascular Cardiovascular: Reports system reviewed and no additional complaints, except as documented and Denies chest pain Respiratory Respiratory: Denies shortness of breath, Reports chest congestion, Reports cough, Denies stridor and Denies wheezing Gastrointestinal Gastrointestingal: Reports system reviewed and no additional complaints, except as documented; Denies abdominal pain, diarrhea or vomiting Musculoskeletal Musculoskeletal: Reports system reviewed and no additional complaints, except as documented and Denies arthralgias Integumentary/Breasts Skin/Breast: Reports system reviewed and no additional complaints, except as documented and Denies rash Neurologic Neurologic: Denies paresthesias Allergic/Immunologic Allergic/Immunologic: Denies wheezing Physical Exam General General appearance: alert and in no apparent distress Eye Eye exam: Present normal appearance, PERRL and EOMI ENT ENT exam: Present mucous membranes moist and normal external ear exam Expanded ENT Exam External ear exam: Present normal external inspection TM/Canal exam: Bilateral TM: erythema and bulging Nose exam: Absent sinus tenderness Nasal speculum exam: Bilateral: normal Mouth exam: Present normal external inspection; Absent drooling Teeth exam: Present normal inspection Throat exam: Present tonsillar erythema and tonsillomegaly Neck Neck exam: Present normal inspection, full ROM and trachea midline; Absent tenderness, lymphadenopathy or thyromegaly Chest Chest inspection: Present normal inspection and symmetric chest wall rise; Absent tenderness or rash Respiratory Respiratory exam: Present normal lung sounds bilaterally; Absent respiratory distress, wheezes, stridor or accessory muscle use Cardiovascular Cardiovascular exam: Present regular rate, normal rhythm and normal heart sounds Abdominal Exam Abdominal exam: Present soft; Absent distention, tenderness, guarding, rebound or rigidity Extremities Exam Extremities exam: Present normal inspection, full ROM and normal capillary refill; Absent tenderness or calf tenderness Back Exam Back exam: Present normal inspection and full ROM; Absent tenderness Neurological Exam Neurological exam: Present alert and oriented X3 Psychiatric Psychiatric exam: Present normal affect and normal mood Skin Skin exam: Present warm, dry, intact and normal color Lymphatic Lymphatic Findings: no adenopathy Medical Decision Making Medical Records Medical records reviewed: No I reviewed the patient's medical records. [place] Inquiry Pt receiving controlled substance: No Lab Data Lab results reviewed: Yes I reviewed the patient's lab results.
[2023-08-18 10:21] LABS: UTC Influenza A Antigen Negative (Negative); UTC Influenza B Antigen Negative (Negative); UTC Strep Screen (Rapid) Negative (Negative)
[2023-08-18 10:57] VITALS: BP 108/71; PULSE 93; RESP 18; TEMP 36.8; O2SAT 99
== END 2023-08-18 10:57 | disposition home or self-care (01) ==
PROVIDERS: Emergency Provider Nurse Practitioner Family; PCP Family Medicine
DX: J20.9 Acute bronchitis, unspecified (principal); J01.90 Acute sinusitis, unspecified; R07.0 Pain in throat; R50.9 Fever, unspecified; R05.9 Cough, unspecified; R53.81 Other malaise; M79.18 Myalgia, other site; J44.9 Chronic obstructive pulmonary disease, unspecified; Z87.891 Personal history of nicotine dependence
CPT/HCPCS: 87804; 87880; 99212; 99214; G0463

== ENCOUNTER 2023-08-24 14:05 | Outpatient (CLI) | payer OTHER, SELFPAY ==
--- NOTE | 2023-08-24 14:08 | XR_ITS ---
FINAL REPORT CLINICAL HISTORY: cough s.o.a. hx of pneumothorax on both sides FINDINGS: There is no evidence of effusion or other pleural disease. The mediastinum has a normal appearance. The cardiac silhouette is unremarkable. IMPRESSION: Unremarkable chest exam. Reviewed, Interpreted and Dictated by Aj Odell MD Transcribed by Jannie Rodrigues Authenticated and [facility]
== END 2023-08-24 23:59 ==
LOC: RAD 14:06
PROVIDERS: PCP Family Medicine; Visit Provider Student in an Organized Health Care Education/Training Program
DX: R05.3 Chronic cough (principal)
CPT/HCPCS: 71046

== ENCOUNTER 2023-10-27 14:09 | Outpatient (CLI) | payer OTHER, SELFPAY ==
--- NOTE | 2023-10-27 14:09 | CT_ITS ---
FINAL REPORT TECHNIQUE: Before and after the administration of intravenous contrast, axial images through the chest were performed by computed tomography. This study was performed with techniques to keep radiation doses as low as reasonably achievable, (ALARA). Individualized dose reduction techniques using automated exposure control or adjustment of mA and/or kV according to the patient's size were employed. CLINICAL HISTORY: L sided chest pain COMPARISON: 04/14/2021 CTA of the chest FINDINGS: CT CHEST WITH AND WITHOUT CONTRAST: Mild changes of emphysema are present, along with mild atelectasis and scarring in the lung bases. No evidence of axillary or hilar adenopathy is noted. There is precarinal adenopathy present, measuring 25 mm in transverse diameter, was previously 29 mm in transverse diameter. This is nonspecific, but may be reactive. No confluent infiltrates or effusions are present. No pleural effusion or pericardial effusion is seen. No focal pulmonary mass or nodule is noted. A moderate sized hiatal hernia is noted. There is mild fatty infiltration of the liver. IMPRESSION: Precarinal adenopathy is present, measuring 25 mm in transverse diameter, slightly smaller than noted on the prior exam of 2020. This is nonspecific, but more likely reactive. Moderate sized hiatal hernia. Reviewed, Interpreted and Dictated by Jared Anthony III, MD Transcribed by Vicky Austin Authenticated and [facility]
[2023-10-27] MEDS: SODIUM CHLORIDE 0.9% 10ML SYR (RAD ONLY) 10 ML IV (14:32)
[2023-10-27] MEDS: IOPAMIDOL-370 (76%);100ML BOTTLE 75 ML IV (14:32)
== END 2023-10-27 23:59 ==
LOC: RAD 14:09
PROVIDERS: PCP Family Medicine; Visit Provider Family Medicine
DX: R07.9 Chest pain, unspecified (principal)
CPT/HCPCS: 71270; Q9967

== ENCOUNTER 2024-04-25 13:46 | Outpatient (CLI) | payer OTHER, SELFPAY ==
--- NOTE | 2024-04-25 13:49 | XR_ITS ---
FINAL REPORT TECHNIQUE: Chest PA & Lateral CLINICAL HISTORY: Nonspecific cough and chest pain for 3 weeks COMPARISON: 08/24/2023 FINDINGS: 2 views of the chest were performed. The heart size is normal. The mediastinum is within normal limits. There is a localized opacity in the anterior right middle lobe. This density is seen at the level of the right cardiophrenic angle consistent with a localized infiltrate and is new since the previous exam.. The left lung is clear. There are no pleural effusions. There is no pneumothorax. The bony thorax appears intact. IMPRESSION: Abnormal opacity right cardiophrenic angle consistent with right middle lobe infiltrate, new since the prior exam. Reviewed, Interpreted and Dictated by Sukhi Drew MD Transcribed by Kelly Dodd Authenticated and [facility]
== END 2024-04-25 23:59 | disposition home or self-care (01) ==
LOC: RAD 13:47
PROVIDERS: PCP Family Medicine; Visit Provider Student in an Organized Health Care Education/Training Program
DX: R05.9 Cough, unspecified (principal)
CPT/HCPCS: 71046; 87635

== ENCOUNTER 2024-05-13 10:08 | Outpatient (CLI) | payer OTHER, SELFPAY ==
[2024-05-13 19:31] LABS: Basophils # 0.1 K/mm3 (0-0.2); Basophils % 0.9 % (0.1-2.0); Eosinophils # 0.2 K/mm3 (0.0-0.4); Eosinophils % 2.7 % (0.1-12.0); Hematocrit 41.3 % (37.0-47.0); Hemoglobin 13.7 g/dL (12.2-16.2); Lymphocytes # 3.1 K/mm3 (0.7-4.5); Lymphocytes % 35.5 % (10-50); Mean Corpuscular HGB Conc 33.2 g/dL (31.8-35.4); Mean Corpuscular Hemoglobin 29.7 pg (27.0-31.2); Mean Corpuscular Volume 89.5 fl (81-99); Mean Platelet Volume 7.6 fl (7.4-10.4); Monocytes # 0.4 K/mm3 (0.1-1.0); Monocytes % 4.6 % (1.7-9.3); Neutrophils # 4.9 K/mm3 (1.8-7.8); Neutrophils % 56.4 % (37.0-80.0); Platelet Count 372 K/mm3 (142-424); Red Blood Count 4.62 M/mm3 (4.20-5.40); Red Cell Distribution Width 13.4 % (11.5-17.5); White Blood Count 8.6 K/mm3 (4.8-10.8)
[2024-05-13 20:06] LABS: Alanine Aminotransferase 31 U/L (12-78); Alkaline Phosphatase 70 U/L (38-126); Aspartate Amino Transferase 32 U/L (14-36); Bilirubin,Total 0.9 mg/dl (0.2-1.3); Blood Urea Nitrogen 13 mg/dl (7-17); Calcium 9.6 mg/dl (8.4-10.2); Chloride 106 mmol/L (98-107); Chol/HDL Ratio 4.4 (1-3.5); Cholesterol 227 mg/dl (140-200); Estimated Glomerular Filt Rate 89 ml/min (>60); GFR (African American) 108 ML/MIN (>60); Glucose 106 mg/dl (74-100); HDL Cholesterol 52 mg/dl (40-60); Sodium 139 mmol/L (136-145); Total Protein,Serum 7.1 g/dl (6.3-8.2); Triglycerides 345 mg/dl (30-150); VLDL Cholesterol 69 mg/dL (0-40)
[2024-05-13 20:08] LABS: Albumin Level 4.4 g/dl (3.5-5.0); Albumin/Globulin Ratio 1.6 (1.1-1.8); Anion Gap 12.2 mEq/L (5-15); Carbon Dioxide 25 mmol/L (22.0-30.0); Globulin 2.7 g/dL (1.3-3.2); Potassium 4.2 mmoL/L (3.5-5.1)
[2024-05-13 20:17] LABS: Direct LDL Cholesterol 126.05 mg/dL (100-129)
[2024-05-13 20:23] LABS: T4 (Thyroxine) 10.5 ug/dl (5.53-11.0)
[2024-05-13 20:29] LABS: Hemoglobin A1C 6.1 % (4.0-6.0)
[2024-05-13 20:37] LABS: Thyroid Stimulating Hormone 0.24 uIU/mL (0.465-4.68)
== END 2024-05-13 23:59 | disposition home or self-care (01) ==
LOC: LAB.DROPOF 05-14 10:08
PROVIDERS: PCP Family Medicine; Visit Provider Family Medicine
DX: E03.9 Hypothyroidism, unspecified (principal); I10 Essential (primary) hypertension; Z87.891 Personal history of nicotine dependence
CPT/HCPCS: 80053; 80061; 83036; 84436; 84443; 85025

== ENCOUNTER 2024-08-19 15:58 | Outpatient (CLI) | payer BC, SELFPAY ==
[2024-08-19 18:09] LABS: Influenza A, PCR Not Detected (NotDetected); Influenza B, PCR Not Detected (NotDetected)
[2024-08-19 21:31] LABS: Coronavirus 19, PCR Detected (NotDetected)
== END 2024-08-19 23:59 | disposition home or self-care (01) ==
LOC: LAB.DROPOF 08-20 11:56
PROVIDERS: PCP Student in an Organized Health Care Education/Training Program; Visit Provider Student in an Organized Health Care Education/Training Program
DX: R05.9 Cough, unspecified (principal)
CPT/HCPCS: 87636

== ENCOUNTER 2024-09-13 16:00 | Outpatient (CLI) | payer BC, SELFPAY ==
[2024-09-13 19:05] LABS: T4 (Thyroxine) 9.9 ug/dl (5.53-11.0)
[2024-09-13 19:18] LABS: Thyroid Stimulating Hormone 0.23 uIU/mL (0.465-4.68)
== END 2024-09-13 23:59 | disposition home or self-care (01) ==
LOC: LAB.DROPOF 09-14 11:55
PROVIDERS: PCP Family Medicine; Visit Provider Family Medicine
DX: Z85.850 Personal history of malignant neoplasm of thyroid (principal); Z87.891 Personal history of nicotine dependence
CPT/HCPCS: 84436; 84443

== ENCOUNTER 2024-09-25 15:40 | Outpatient (CLI) | payer BC, SELFPAY ==
--- NOTE | 2024-09-25 15:41 | MR_ITS ---
PROCEDURE INFORMATION: Exam: MR Head Without and With Contrast, Sella Exam date and time: 09/25/2024 4:38 PM Age: 48 years old Clinical indication: Condition or disease; Brain tumor; Neoplasm of brain, not specified; Additional info: Pituitary mass follow up TECHNIQUE: Imaging protocol: MR of the head without and with intravenous contrast. Exam focused on the sella. Contrast material: ISOVUE; Contrast volume: 13 ml; Contrast route: IV; COMPARISON: MR HEAD/BRAIN WO/W CON 10/14/2021 3:05 PM FINDINGS: Brain: There is no intra-axial mass effect, midline shift, hemorrhage, extra-axial fluid collection or acute infarct. Cerebral ventricles: Unremarkable. No ventriculomegaly. Pituitary gland and sella: Dedicated imaging of the sella and pituitary demonstrates a normal caliber gland with a nonenhancing lesion in the posterior half of the adenohypophysis measuring 4 x 3 x 7 mm unchanged from the prior study. The infundibular stalk is midline. Parasellar and suprasellar regions are unremarkable. Bones/joints: Unremarkable. IMPRESSION: Unchanged 7 x 4 x 3 mm lesion in the posterior adenohypophysis compatible with given history of microadenoma.
[2024-09-25] MEDS: GADOTERIDOL INJ 20ML SYRINGE 13 ML IV (17:58)
== END 2024-09-25 23:59 | disposition home or self-care (01) ==
LOC: RAD 15:41
PROVIDERS: PCP Family Medicine; Visit Provider Family Medicine
DX: D35.2 Benign neoplasm of pituitary gland (principal)
CPT/HCPCS: 70553; A9576

== ENCOUNTER 2025-01-20 15:54 | Observation (INO) | payer BC, SELFPAY ==
[2025-01-20] VITALS (12 sets, daily range): BP systolic 119–149; BP diastolic 74–85; PULSE 67–84; RESP 11–18; TEMP 36.7–37; O2SAT 98–100; BMI 21.1
--- OUTSIDE RECORDS SUMMARY | 2025-01-20 16:04 | XMS_ITS | Clinical Summary ---
Author Organization [facility] Address [address] [place] [address] Phone Care Team Providers Care Solder Deposit Operator Name Role Phone Henrique Edwards MD Primary Care Provider [phone] Allergies Active Allergy Reactions Criticality Noted Date Comments Clindamycin Other (See Comments) High 05/04/2022 Escitalopram 12/02/2009 Morphine Anaphylaxis High 12/02/2009 Penicillins 12/02/2009 Sulfa (Sulfonamide Antibiotics) Other (See Comments) 12/02/2009 Trimethoprim Other (See Comments) 08/07/2023 Medications albuterol (PROVENTIL HFA;VENTOLIN HFA) 90 mcg/actuation Inhl HFA Aerosol Inhaler Inhale 2 Puffs into the lungs every 6 hours as needed for Wheezing or Shortness of Breath. 1 Inhaler 3 6 Active budesonide-form oterol (SYMBICORT) 80-4.5 mcg/actuation Inhl HFA Aerosol InhalerIndicati ons:COPD, mild (HCC) Inhale 2 Puffs into the lungs 2 times daily. 1 Inhaler 12 6 Active LEVOthyroxine (SYNTHROID) 112 mcg Oral Tablet Take 1 Tab by mouth daily. 30 Tab 1 Active aspirin 81 mg Oral Tablet, Chewable Take 81 mg by mouth daily. Active HYDROcodone-santana taminophen (NORCO) 7.5-325 mg Oral Tablet Take 1 Tablet by mouth every 6 hours as needed. Active propranoloL (INDERAL) 1 mg/mL IV Solution 80 mg. 4 Active predniSONE (DELTASONE) 20 mg Oral Tablet Take 20 mg by mouth 2 times daily. for 5 days 4 Active metoprolol (LOPRESSOR) 50 mg Oral Tablet Take 50 mg by mouth. Active doxycycline hyclate (VIBRAMYCIN) 100 mg Oral Capsule Take 100 mg by mouth 2 times daily. 4 Active divalproex (DEPAKOTE SPRINKLE) 125 mg Oral capsule, delayed rel sprinkle Take 125 mg by mouth. Active tiotropium (SPIRIVA) 18 mcg Inhl Capsule, w/Inhalation Device 1 Capsule. 3 Active NURTEC ODT 75 mg Oral Tablet, Rapid Dissolve DISSOLVE 1 TABLET ON THE TONGUE 1 TIME NEEDED FOR MIGRAINE HEADACHE 4 Active predniSONE (DELTASONE) 10 mg Oral TabletIndicatio ns:Dermatitis Take 3 tabs for 3 days then 2 tabs for 3 days then 1 tab for 3 days. 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 Left sided numbness Resolved Problems Problem Noted Date Diagnosed Date Resolved Date Subclinical hyperthyroidism, iatrogenic 11/18/2011 04/20/2012 Thyroid nodule 11/18/2011 Overview (11/18/2011): s/p right hemithyroidectomy 09/04 Immunizations Immunization Administration Dates Next Due Influenza High Dose 07/08/2016 Pneumococcal Polysaccharide 23 Valent 07/08/2016 Surgical History Surgery Date Site/Laterality Comments APPENDECTOMY SECTION LUNG SURGERY chest tube TUBAL LIGATION THYROIDECTOMY 08/29/2011 Right RIGHT THYROID LOBECTOMY ; Surgeon: Zoran Cruz MD; Location: [facility]; Service: ENT THYROIDECTOMY 09/21/2011 Left LEFT THYROID LOBECTOMY with NIM monitoring; Surgeon: Zoran Cruz MD; Location: [facility]; Service: ENT ESOPHAGEAL MOTILITY STUDY 07/06/2012 N/A ESOPHAGEAL MOTILITY; Surgeon: Juve Carpio MD; Location: [facility]; Service: Endoscopy UPPER GASTROINTESTINAL ENDOSCOPY 09/12/2012 N/A ESOPHAGOGASTRODUODENOSCOP Y PARRA; Surgeon: Juve Carpio MD; Location: [facility]; Service: Endoscopy Medical History Medical History Date Comments Lung collapse bilat Depression COPD (chronic obstructive pu lmonary disease) (HCC) Heartburn Headache(784.0) Thyroid disease Thyroid cancer ([facility]) August 2011 microscopic papillary, [id number] Stage 1 Post-surgical hypothyroidism 09/21/2011 com pletion thyroidectomy Thyroid nodule 2010 s/p completion t hyroidectomy 09/04 Subclinical hyperthyroidism, iatrogenic 11/03/2011 Family History Medical History Relation Name Comments Diabetes Maternal Grandmother Relation Name Status Comments Father Alive Maternal Grandfather Maternal Grandmother Mother Alive Paternal Grandfather Paternal Grandmother Social History Tobacco Use Types Packs/Day Years Used Date Smoking Tobacco: Former Cigarettes 1.5 17.7 0 11/27/1989 - 07/24/2007 Smokeless Tobacco: Never Tobacco Cessation:Counseling Given: Not Answered Comments:Quit in January 2008 Alcohol Use Standard Drinks/Week Comments Yes 1 (1 standard drink = 0.6 oz pur e alcohol) occa Sexually Active Control Partners Comments Never Comments No Sex and Gender Information Value Date Recorded Sex Assigned at Not on file Legal Sex Female 4:26 PM EDT Gender Identity Not on file Sexual Orientation Not on file Obstetrics History Last Filed Vital Signs Vital Sign Reading Time Taken Comments Blood Pressure 104/68 09/02/2023 3:08 PM EST Pulse 84 09/02/2023 3:08 PM EST Temperature 36.9 C (98.4 F) 09/02/2023 3:08 PM EST Respiratory Rate 16 09/02/2023 3:08 PM EST Oxygen Saturation 96% 09/02/2023 3:08 PM EST Inhaled Oxygen Concentration - - Weight 60.8 kg (134 lb) 09/02/2023 3:08 PM EST Height 170.2 cm (5' 7 ) 09/02/2023 3:08 PM EST Body Mass Index 20.99 09/02/2023 3:08 PM EST Plan of Treatment Health Maintenance Due Date Last Done Comments Annual Wellness Exam 1977 DTaP/TDaP/Td (1 - Tdap) 1993 Cervical Cancer Screening 10/01/1995 Pap Smear 10/01/1995 HPV/Pap Cotest 2004 Hepatitis B Vaccine (2 of 3 - 19+ 3-dose series) 02/23/2010 01/26/2010 Breast Cancer Screening 2014 Pneumococcal Vaccine 50+ (2 of 2 - PCV) 07/08/2017 07/08/2016 Cologuard 10/01/2019 Colon Cancer Screening 10/01/2019 Colonoscopy 10/01/2019 FIT 10/01/2019 Sigmoidoscopy 10/01/2019 Virtual Colonography 10/01/2019 COVID-19 Vaccine (3 - 2023-2 5 season) 2024 12/02/2020, 11/04/2020 Zoster (1 of 2) 2024 Influenza Vaccine (Season Ended) 2025 05/12/2017, 07/08/2016 Meningococcal B Vaccine Aged Out No l onger eligible based on patient's age to complete this topic Insurance CHOICE CHOICE CHOICE Advance Directives For more information, please contact: [phone] * Full Code (Latest Code Status on File) Date Activated Date Inactivated Comments 11/28/2020 12:08 PM 11/30/2020 7:56 PM Care Teams Solder Deposit Operator Relationship Specialty Start Date End Date Henrique Edwards MD PCP - General Family Medicine 05/18/21
--- OUTSIDE RECORDS SUMMARY | 2025-01-20 16:04 | XMS_ITS | Clinical Summary ---
Author Organization Healthcare Address [facility] [place] [address] Care Team Providers Care Religious Assistant Name Role Phone Doug Davalos LOLA Primary Care Provider [phone] Immunizations Immunization Administration Dates Next Due Influenza, injectable, quadrivalent, preservativ e free 05/12/2017 Social History Tobacco Use Types Packs/Day Years Used Date Smoking Tobacco: Former Alcohol Use Standard Drinks/Week Comments Yes 0 (1 standard drink = 0.6 oz pure alcohol) Alcoholic Drinks/day: Social alcohol use Comments Unknown Sex and Gender Information Value Date Recorded Sex Assigned at Not on file Legal Sex Female 6:37 PM EDT Gender Identity Not on file Sexual Orientation Not on file Last Filed Vital Signs Vital Sign Reading Time Taken Comments Blood Pressure - - Pulse - - Temperature - - Respiratory Rate - - Oxygen Saturation - - Inhaled Oxygen Concentration - - Weight 56.7 kg (125 lb) 06/11/2014 10:45 AM EST Height 167.6 cm (5' 6 ) 06/11/2014 10:45 AM EST Body Mass Index 20.18 06/11/2014 10:45 AM EST Plan of Treatment Not on file Insurance Care Teams Religious Assistant Relationship Specialty Start Date End Date Doug Davalos APRN [address] [place] [address] PCP - General 12/04/20
--- OUTSIDE RECORDS SUMMARY | 2025-01-20 16:04 | XMS_ITS | Clinical Summary ---
Author Organization [facility] Address [address] [place] [address] Care Team Providers Care Surveyor Hydrographic Name Role Phone Pcp, No Primary Care Provider [phone] Source Comments This information has been disclosed to you from confidential records protectedfrom disclosure by state law. You shall make no further disclosure of thisinformation without the specific, written, and informed release of theindividual to whom it pertains, or as otherwise permitted by law. A generalauthorization for the release of medical or other information is not sufficientfor the purposes of therelease of HIV test results or diagnoses. [id number] Allergies Active Allergy Reactions Criticality Noted Date Comments Clindamycin 05/04/2022 Escitalopram 05/04/2022 Morphine 05/04/2022 Penicillins 05/04/2022 Sulfa (Sulfonamide Antibiotics) 04/23 Medications levothyroxine (SYNTHROID) 112 MCG tablet Take 1 tablet (112 mcg total) by mouth every morning before breakfast. Active butalbital-santana taminophen-caf feine (FIORICET) 50-325-40 mg per tablet Take 1 tablet by mouth every 4 hours as needed for Pain. Active albuterol 90 mcg/actuation Inhl inhaler Inhale 2 puffs into the lungs every 6 hours as needed for Wheezing. Active metoprolol tartrate (LOPRESSOR) 50 MG tablet Take 1 tablet (50 mg total) by mouth 2 times a day. Active galcanezumab-g nlm (EMGALITY SYRINGE) 120 mg/mL Syrg Inject 1 mL (120 mg total) subcutaneously every 28 days. Active divalproex (DEPAKOTE SPRINKLE) 125 mg capsule Take 1 capsule (125 mg total) by mouth 2 times a day. Active cetirizine (ZYRTEC) 10 MG tablet Take 1 tablet (10 mg total) by mouth daily. Active HYDROcodone-ac etaminophen (VICODIN) 5-300 mg Tab Take 1 tablet by mouth. Active rimegepant (NURTEC ODT) 75 mg TbDL Take by mouth. Acti ve Active Problems No known active problems Family History Medical History Relation Comments Stroke Father Seizures Sister Relation Status Comments Father Sister Social History Tobacco Use Types Packs/Day Years Used Date Smoking Tobacco: Former Cigarettes 1 15 Smokeless Tobacco: Never Alcohol Use Standard Drinks/Week Comments Never 0 (1 standard drink = 0.6 oz pur e alcohol) PHQ-2 Answer Date Recorded PHQ-2 Total Score 0 11/18/2023 Yearly Questionnaire Answer Date Record ed Do you need any assistance w ith obtaining housing, meals, medication, transportation or medical equipment? No 11/17 Assistance needed for: Not on file 4 Yearly Questionnaire Answer Date Record ed Do you need any assistance w ith obtaining housing, meals, medication, transportation or medical equipment? No 11/17 Assistance needed for: Not on file 4 Yearly Questionnaire Answer Date Record ed Do you need any assistance w ith obtaining housing, meals, medication, transportation or medical equipment? No 11/17 Assistance needed for: Not on file 4 Comments No Sex and Gender Information Value Date Recorded Sex Assigned at Not on file Legal Sex Female 4:24 PM EST Gender Identity Not on file Sexual Orientation Not on file Last Filed Vital Signs Vital Sign Reading Time Taken Comments Blood Pressure 112/72 11/20/2023 2:00 PM EDT Pulse 89 11/20/2023 2:00 PM EDT Temperature 36.3 C (97.4 F) 11/20/2023 2:00 PM EDT Respiratory Rate 16 11/20/2023 2:00 PM EDT Oxygen Saturation 99% 11/20/2023 2:00 PM EDT Inhaled Oxygen Concentration 99% 11/20/2023 2 :00 PM EDT Weight 63.5 kg (140 lb) 11/20/2023 2:00 PM EDT Height 170.2 cm (5' 7 ) 11/20/2023 2:00 PM EDT Body Mass Index 21.93 11/20/2023 2:00 PM EDT Plan of Treatment Health Maintenance Due Date Last Done Comments Abnormal Colonoscopy Follow Up 1974 Hepatitis C Screening (MyChart) 1974 Alcohol Misuse Screening 1992 HIV Screening 1992 Immunization: DTaP/Tdap/Td (1 - Tdap) 1993 Cervical Cancer Screening/Pa p Smear (MyChart) 2004 Immunization: Hepatitis B (2 of 3 - 19+ 3-dose series) 02/23/2010 01/26/2010 Mammogram (MyChart) 2014 Cologuard (FIT-DNA) 10/01/2019 Colonoscopy 10/01/2019 Colorectal Cancer Screening (MyChart) 10/01/2019 Stool Testing (gFOBT) 10/01/2019 Depression Screening 05/04/2023 05/04/2022 Immunization: COVID-19 ( season) 2024 12/02/2020, 11/04/2020 Immunization: Pneumococcal (2 of 2 - PCV) 2024 07/08/2016 Immunization: Zoster (1 of 2) 2024 Immunization: Influenza (MyC [place]) (Season Ended) 2025 05/12/2017, 07/08/2016 Insurance [facility] CHOICE Care Teams Surveyor Hydrographic Relationship Specialty Start Date End Date Pcp, No No Address PCP - General 10/18/23
--- NOTE | 2025-01-20 16:06 | CT_ITS ---
PROCEDURE INFORMATION: Exam: CT Abdomen And Pelvis With Contrast Exam date and time: 01/20/2025 5:06 PM Age: 49 years old Clinical indication: Abdominal pain; Additional info: Diffuse abd pain, nausea TECHNIQUE: Imaging protocol: Computed tomography of the abdomen and pelvis with contrast. Radiation optimization: All CT scans at this facility use at least one of these dose optimization techniques: automated exposure control; mA and/or kV adjustment per patient size (includes targeted exams where dose is matched to clinical indication); or iterative reconstruction. Contrast material: ISOVUE; Contrast volume: 75 ml; Contrast route: IV; COMPARISON: CT CHEST WO/W CON 10/27/2023 2:22 PM FINDINGS: Diaphragm: Stable moderate-sized sliding-type hiatal hernia. Liver: Normal. No mass. Gallbladder and biliary ducts: Normal. No calcified stones. No ductal dilation. Pancreas: Normal. No ductal dilation. Spleen: Normal. No splenomegaly. Adrenal glands: Normal. No mass. Kidneys and ureters: Normal. No hydronephrosis. Stomach and bowel: Unremarkable. No obstruction. No mucosal thickening. Appendix: The appendix appears to be surgically absent. Intraperitoneal space: Unremarkable. No free air. No significant fluid collection. Vasculature: Moderate atherosclerotic calcification in the distal aorta and iliac arteries. No aneurysm or dissection. Lymph nodes: Unremarkable. No enlarged lymph nodes. Urinary bladder: Unremarkable as visualized. Reproductive: Unremarkable as visualized. Bones/joints: Unremarkable. No acute fracture. Soft tissues: Unremarkable. IMPRESSION: No acute abnormality. Stable chronic findings as noted.
--- NOTE | 2025-01-20 16:09 | [facility]H.EDGENADL ---
Discharge Plan Disposition Patient Disposition: Admitted Condition: Good Clinical Impressions Clinical Impression: Abdominal pain, Elevated transaminase level Discharge ED Provider: Anoop Rees General Adult HPI <FRANCISCO Lua - Last Filed: 01/20/25 19:45> General Chief complaint: Nausea/Vomiting/Diarrhea Stated complaint: Nauseated, passed out, liver enzymes high Time Seen by Provider: 01/20/25 15:59 Mode of Arrival: Ambulatory Source of Information: Patient Limitations: No Limitations History of Present Illness HPI narrative: 49-year-old female presents the emergency department with a 4-day history of diffuse abdominal pain, nausea, she denies any fever chills chest pain shortness of breath, denies any constipation diarrhea, denies any hematuria melena hematochezia hematemesis, no hemoptysis, no urinary type symptomatology, no vaginal type symptomatology, of note patient states that she was seen in outside facility/emergency department last night, had a migrainous type headache for which she has chronic migraine headaches, she takes controller medications for this at home, they performed neuroimaging studies all of which were negative, treated her with Reglan, Toradol/migraine cocktail, with some improvement to her symptomatology, and she was told that her liver enzymes , were elevated. She does not know how high her liver enzymes were recorded outside facility. Today she states she was at work, experienced a severe wave of nausea and pain , enough so that it made her pass out , patient states that this was unwitnessed, she does state that she felt it coming on, she is unsure of how long she was out for, thus prompted her emergency department visit. Patient is a former smoker, denies any alcohol or drug use, other past medical history consist of migraines, ongoing pituitary tumor of unknown type, history of total thyroidectomy, celiac disease, peripheral artery disease, history of vasovagal syncope, COPD, GERD. Initial triage vitals unremarkable. Onset (ago): day(s) Related Data Previous Rx's ?Medication ?Instructions ?Recorded albuterol sulfate 90 mcg/actuation 2 puff inhalation Q4H #8.5 grams 09/13/24 aerosol inhaler cyclobenzaprine 5 mg tablet 5 mg PO HS PRN muscle spasm #90 09/13/24 tabs famotidine 40 mg tablet (Pepcid) 40 mg PO BID #180 tabs 02/21/25 levothyroxine 88 mcg tablet 88 mcg PO DAILY #90 tabs 09/13/24 (Synthroid) rimegepant 75 mg disintegrating 75 mg PO Q OTHER DAY #15 tabs 09/13/24 tablet (Nurtec ODT) galcanezumab-gnlm 120 mg/mL See Rx Instructions .Route 09/20/24 subcutaneous pen injector .COMPLEX #1 mL (Emgality Pen) hydrocodone 5 mg-acetaminophen 325 See Rx Instructions PO BID PRN 01/20/25 mg tablet pain #30 tabs Allergies Allergy/AdvReac Type Severity Reaction Status Date / Time morphine Allergy Intermediate Nausea Verified 01/13/25 14:56 Penicillins Allergy Intermediate Unknown Verified 01/13/25 14:56 allergy reaction Sulfa (Sulfonamide Allergy Intermediate Unknown Verified 01/13/25 14:56 Antibiotics) allergy reaction clindamycin AdvReac Severe Verified 01/13/25 14:56 escitalopram AdvReac Intermediate Unknown Verified 01/13/25 14:56 allergy reaction [facility] <FRANCISCO Lua - Last Filed: 01/20/25 19:45> [facility] Disclaimer: The information contained in this section may have been updated after the patient was seen, as this information can be updated by other users. Medical History Migraine Primary hypertension Pituitary adenoma Vasovagal attack Celiac disease PAD (peripheral artery disease) Dyspnea COPD (chronic obstructive pulmonary disease) Ex-smoker Sinus bradycardia Left arm pain Chest pain Post-surgical hypothyroidism Migraine equivalent syndrome Pituitary microadenoma History of thyroid cancer Pituitary tumor Facial rash Surgical History History of thyroidectomy Family History Other No significant family history Social History (Updated 01/13/25 @ 15:02 by Alesia Painting MA) Smoking Status: Former smoker alcohol intake: never substance use type: denies use current occupational status: employed Travel in the last 8 weeks?: None Have you lived/traveled outside [place] in past 30 days?: No Contact w/someone who lives/traveled outside US past 30 days?: No Exposure to someone with infectious disease in past 14 days?: No Do you have a fever (greater than 100.4 F or 38 C)?: No Have you tested positive for COVID-19?: No Exposed to someone with COVID-19 in past 14 days?: No Do you have a sore throat?: No Do you have a cough?: No Do you have any weakness?: No Do you have any diarrhea?: No Are you experiencing any unusual bleeding?: No Do you have any muscle aches/pain?: No Do you have any abdominal pain?: No Are you experiencing loss of taste or smell?: No Other Medical History Have you received the Flu Vaccine for this season: No Have you received the Pneumonia Vaccine: No <FRANCISCO Lua - Last Filed: 01/20/25 19:45> ROS Obtained: Yes All systems reviewed & no additional complaints except as documented Physical Exam <FRANCISCO Lua - Last Filed: 01/20/25 19:45> General General appearance: alert and in no apparent distress Head Head exam: atraumatic and normocephalic Eye Eye exam: Present PERRL and EOMI ENT ENT exam: Present mucous membranes moist Neck Neck exam: Present normal inspection Chest Chest inspection: Present normal inspection and symmetric chest wall rise Respiratory Respiratory exam: Present normal lung sounds bilaterally; Absent respiratory distress Cardiovascular Cardiovascular exam: Present regular rate and normal rhythm Abdominal Exam Abdominal exam: Present soft and tenderness; Absent guarding, rebound, rigidity, Guajardo's sign or tenderness at McBurney's Point Abdominal tenderness: Present diffuse and mild Extremities Exam Extremities exam: Present normal inspection Neurological Exam Neurological exam: Present alert and oriented X3 Psychiatric Psychiatric exam: Present normal affect Skin Skin exam: Present warm and dry Medical Decision Making <FRANCISCO Lua - Last Filed: 01/20/25 19:45> Medical Records Medical records reviewed: Yes I reviewed the patient's medical records. Screening: Per USPSTF and CDC recommendations, given the prevalence of disease in our region, it is our hospital?s policy to screen for HIV and viral Hepatitis for all patients aged 18 and over and those with ongoing risk factors. [place] Inquiry Pt receiving controlled substance: No [place] was queried for this patient: No Vital Signs: 01/20/25 16:16 01/20/25 16:31 01/20/25 16:55 Temperature 98.6 F Temperature Source Oral Pulse Rate 80 84 Pulse Rate [Right Brachial] 77 Respiratory Rate 16 16 16 Blood Pressure 119/75 121/74 Blood Pressure [Right Arm] 119/75 Blood Pressure Mean 89 87 Blood Pressure Mean [Right Arm] 89 Blood Pressure Source Blood Pressure Source [Right Arm] Automatic Cuff Blood Pressure Position 02 Sat by Pulse Oximetry 98 98 100 Oxygen Delivery Method Room Air 01/20/25 17:30 01/20/25 18:00 01/20/25 18:30 Temperature Temperature Source Pulse Rate 82 72 76 Pulse Rate [Right Brachial] Respiratory Rate 11 L 13 18 Blood Pressure 141/83 H 135/76 134/78 Blood Pressure [Right Arm] Blood Pressure Mean 91 Blood Pressure Mean [Right Arm] Blood Pressure Source Blood Pressure Source [Right Arm] Blood Pressure Position 02 Sat by Pulse Oximetry 100 100 98 Oxygen Delivery Method 01/20/25 18:45 01/20/25 19:00 01/20/25 19:30 Temperature Temperature Source Pulse Rate 69 67 72 Pulse Rate [Right Brachial] Respiratory Rate 16 13 14 Blood Pressure 134/78 149/80 H 146/83 H Blood Pressure [Right Arm] Blood Pressure Mean 92 104 Blood Pressure Mean [Right Arm] Blood Pressure Source Blood Pressure Source [Right Arm] Blood Pressure Position 02 Sat by Pulse Oximetry 100 100 100 Oxygen Delivery Method 01/20/25 20:01 Temperature 98.6 F Temperature Source Oral Pulse Rate 72 Pulse Rate [Right Brachial] Respiratory Rate 16 Blood Pressure 146/83 H Blood Pressure [Right Arm] Blood Pressure Mean Blood Pressure Mean [Right Arm] Blood Pressure Source Automatic Cuff Blood Pressure Source [Right Arm] Blood Pressure Position Sitting 02 Sat by Pulse Oximetry Oxygen Delivery Method Room Air Lab Data Lab results reviewed: Yes I reviewed the patient's lab results. Lab Results 01/20/25 16:26: WBC 10.7, RBC 4.48, Hgb 13.5, Hct 39.9, MCV 89.1, MCH 30.1, MCHC 33.8, RDW 12.5, Plt Count 356, MPV 9.7, Neut % (Auto) 69.3, Lymph % (Auto) 24.3, [place] % (Auto) 5.0, Eos % (Auto) 0.4, Baso % (Auto) 0.6, Neut # (Auto) 7.4, Lymph # (Auto) 2.6, [place] # (Auto) 0.5, Eos # (Auto) 0.0, Baso # (Auto) 0.1, Sodium 136, Potassium 4.2, Chloride 98, Carbon Dioxide 27, Anion Gap 15.2 H, BUN 32 H, Creatinine 0.80, Estimated Creat Clear 81, Estimated GFR 76, Est GFR ( Amer) 92, Glucose 157 H, Calcium 9.2, Magnesium 2.1, Total Bilirubin 0.8, AST 399 H*, ALT 304 H*, Alkaline Phosphatase 101, Troponin I < 0.01, NT-Pro-B Natriuret Pep < 20.0, Total Protein 8.2, Albumin 4.9, Globulin 3.3 H, Albumin/Globulin Ratio 1.5, Lipase 337 H, HCV Ab [place] w/Rflx PCR Qn Negative, HIV Ag/Ab Combo Qual Negative 01/20/25 16:45: Urine Color Yellow, Urine Appearance Clear, Urine pH 6.0, Ur Specific Bertram >= 1.030, Urine Protein Negative, Urine Glucose (UA) Negative, Urine Ketones Negative, Urine Blood Trace-i, Urine Nitrate Negative, Urine Bilirubin Negative, Urine Urobilinogen 0.2, Ur Leukocyte Esterase 1+ A, Urine WBC 10-20, Ur Squamous Epith Cells 10-20, Urine Bacteria 2+ 01/20/25 19:26: Troponin I < 0.01 01/20/25 16:26 01/20/25 16:26 Orders (Tests/Meds): ED MEDICATIONS Generic Name Dose Route Start Last Admin Trade Name Freq PRN Reason Stop Dose Admin Hydrocodone Bitart/Acetaminophen 1 tab 01/20/25 19:36 Hydrocodone/Apap 5/325 Mg Tablet PO 02/19/25 19:35 Q4HP PRN Mild to Moderate Pain (1-6) Docusate Sodium 100 mg 01/20/25 19:36 Docusate Sodium 100 Mg Capsule PO 02/20/25 08:59 DAILY PRN Constipation Hydromorphone HCl 4 mg 01/20/25 19:36 Hydromorphone 2mg/Ml Syringe IV 02/19/25 19:35 Q2HP PRN Severe Pain (7-10) Lactated Ringer's 1,000 mls @ 999 mls/hr 01/20/25 19:37 Lactated Ringer's 1000 Ml Bag IV 01/20/25 20:37 .Q1H1M ONE Lactated Ringer's 1,000 mls @ 50 mls/hr 01/20/25 19:45 Lactated Ringer's 1000 Ml Bag IV 02/19/25 19:44 .Q20H MARIANNE Pantoprazole Sodium 40 mg 01/20/25 19:36 Pantoprazole 40mg Tablet PO 02/19/25 20:59 HS PRN reflux Sodium Chloride 10 ml 01/20/25 17:03 01/20/25 17:05 Sodium Chloride 0.9% 10ml Syr (Rad Only) IV 02/19/25 17:02 10 ml NEEDED PRN Administration Maintain IV Site Discontinued Medications Generic Name Dose Route Start Last Admin Trade Name Dionisio PRN Reason Stop Dose Admin Iopamidol 75 ml 01/20/25 17:03 01/20/25 17:05 Iopamidol-370 (76%);100ml Bottle IV 01/20/25 17:04 75 ml ONCE ONE Administration Ketorolac Tromethamine 15 mg 01/20/25 16:07 01/20/25 16:41 Ketorolac 30mg/Ml Vial IV 01/20/25 16:08 15 mg ONCE ONE Administration Methylprednisolone Sodium Succinate 125 mg 01/20/25 18:24 01/20/25 18:27 Methylprednisolone Sod Succ 125mg Vial IV 01/20/25 18:25 125 mg ONCE ONE Administration Ondansetron HCl 4 mg 01/20/25 16:07 01/20/25 16:41 Ondansetron 4mg/2ml Vial IV 01/20/25 16:08 4 mg ONCE ONE Administration ORDERS Category Date Time Status CT abdomen pelvis w con Stat Cat Scan 01/20/25 16:06 Completed Gastroenterology Consult [Consult to Gastroenterology] Cons 01/20/25 19:36 Active [CONS] Routine POCUS Point of Care (ER Only) Stat Exams 01/20/25 17:35 Completed Complete Blood Count Auto Diff AMLAB Lab 01/21/25 06:00 Ordered Complete Blood Count Auto Diff Stat Lab 01/20/25 16:26 Completed Comprehensive Metabolic Panel AMLAB Lab 01/21/25 06:00 Ordered Comprehensive Metabolic Panel Stat Lab 01/20/25 16:26 Completed HIV Combo Routine Lab 01/20/25 16:26 Completed Hepatitis C Ab Qual. W/ RFX Routine Lab 01/20/25 16:26 Completed Lactic Acid Stat Lab 01/20/25 19:47 Received Lipase Stat Lab 01/20/25 16:26 Completed Lipid Panel AMLAB Lab 01/21/25 06:00 Ordered Magnesium Stat Lab 01/20/25 16:26 Completed NT Pro Brain Natriuretic Pep. Stat Lab 01/20/25 16:26 Completed Phosphorous AMLAB Lab 01/21/25 06:00 Ordered Troponin I Q3H Lab 01/20/25 19:26 Completed Troponin I Q3H Lab 01/20/25 22:15 Ordered Troponin I Stat Lab 01/20/25 16:26 Completed Urinalysis and Microscopic Stat Lab 01/20/25 16:45 Completed Urine Culture Stat Micro 01/20/25 16:45 Received Medical Decision Narrative: 49-year-old female presents emergency department with nausea and abdominal pain, and a syncopal episode, differential diagnose include but not limited to, vasovagal syncope, situational syncope, cardiogenic syncope, orthostatic hypotension, acute liver failure, cholecystitis, choledocholithiasis, cholelithiasis, bowel obstruction, ileitis, colitis, among others. I discussed this patient's case with the attending physician Will obtain basic laboratory studies, lactic acid level, lipase level, magnesium level, proBNP, troponin, urinalysis, EKG, CT and pelvis with contrast, and will give 15 mg IV Toradol and 4 mg Zofran for pain and nausea. CBC unremarkable CMP is notable for elevated BUN at 32, AST is elevated at 399, ALT is elevated at 304 Lipase is elevated at 337 Troponin is less than 0.01, proBNP within normal limits UA is notable for 1+ leukocyte Estrace, negative nitrites, trace hematuria. Obtain POCUS bedside ultrasound of the right upper quadrant. Will also reach out to outside hospital/emergency department to obtain the patient's transaminase levels from last night when she was seen at outside hospital. I reviewed the patient's CT abdomen pelvis with contrast along with the corresponding radiologic report. I reviewed the patient's records from outside facility, patient also had abdomen pelvis contrast CT performed yesterday, which showed no acute abdominal/pelvic abnormality, did show medium hiatal hernia. Examination as noted from outside facility last night were elevated with an AST at 380, and ALT at 297, so slow uptrend of the patient's transaminases. Discussed this patient's case with the on-call/reading radiologist at approximately 6:18 PM, gave him additional clinical information/history as I obtain records from outside facility, he reread the scans and still believes that the pancreas and biliary tree an unremarkable appearance. Will give 125 mg IV Solu-Medrol and pursue hepatitis type pathology. Limited RUQ ultrasound Indication: [-Abdominal pain -Nausea Identified structures: -Gallbladder -Gallbladder wall -Common bile duct -Liver Findings: Sonographic Guajardo sign: absent [Absent] Gallstones: [Absent] Sludge: [Absent] Pericholecystic fluid: [Absent] Maximal GB wall thickness (mm): [normal is </= 3mm] [Normal] Common bile duct width (mm): [normal is </= 6mm] [Normal] Gallbladder width (cm): [normal is < 4cm] [Normal] Gallbladder length (cm): [normal is < 10cm] [Normal] Impression: [-Normal gallbladder] Images [were saved] to permanent archive The study [was] technically adequate CPT 59810-54 This study was performed by me, and I personally interpreted all images/videos. Based on my clinical judgement, these images were [adequate/inadequate] and [did/did not] necessitate further imaging. I discussed this patient's case with the hospitalist Dr. Trevizo at 7:15 PM he is in agreement with the current treatment plan/admission plan. Will start gentle 1 L LR IV. <Anoop Rees MD - Last Filed: 01/20/25 20:07> Vital Signs: 01/20/25 16:16 01/20/25 16:31 01/20/25 16:55 Temperature 98.6 F Temperature Source Oral Pulse Rate 80 84 Pulse Rate [Right Brachial] 77 Respiratory Rate 16 16 16 Blood Pressure 119/75 121/74 Blood Pressure [Right Arm] 119/75 Blood Pressure Mean 89 87 Blood Pressure Mean [Right Arm] 89 Blood Pressure Source Blood Pressure Source [Right Arm] Automatic Cuff Blood Pressure Position 02 Sat by Pulse Oximetry 98 98 100 Oxygen Delivery Method Room Air 01/20/25 17:30 01/20/25 18:00 01/20/25 18:30 Temperature Temperature Source Pulse Rate 82 72 76 Pulse Rate [Right Brachial] Respiratory Rate 11 L 13 18 Blood Pressure 141/83 H 135/76 134/78 Blood Pressure [Right Arm] Blood Pressure Mean 91 Blood Pressure Mean [Right Arm] Blood Pressure Source Blood Pressure Source [Right Arm] Blood Pressure Position 02 Sat by Pulse Oximetry 100 100 98 Oxygen Delivery Method 01/20/25 18:45 01/20/25 19:00 01/20/25 19:30 Temperature Temperature Source Pulse Rate 69 67 72 Pulse Rate [Right Brachial] Respiratory Rate 16 13 14 Blood Pressure 134/78 149/80 H 146/83 H Blood Pressure [Right Arm] Blood Pressure Mean 92 104 Blood Pressure Mean [Right Arm] Blood Pressure Source Blood Pressure Source [Right Arm] Blood Pressure Position 02 Sat by Pulse Oximetry 100 100 100 Oxygen Delivery Method 01/20/25 20:01 Temperature 98.6 F Temperature Source Oral Pulse Rate 72 Pulse Rate [Right Brachial] Respiratory Rate 16 Blood Pressure 146/83 H Blood Pressure [Right Arm] Blood Pressure Mean Blood Pressure Mean [Right Arm] Blood Pressure Source Automatic Cuff Blood Pressure Source [Right Arm] Blood Pressure Position Sitting 02 Sat by Pulse Oximetry Oxygen Delivery Method Room Air Lab Data Lab Results 01/20/25 16:26: WBC 10.7, RBC 4.48, Hgb 13.5, Hct 39.9, MCV 89.1, MCH 30.1, MCHC 33.8, RDW 12.5, Plt Count 356, MPV 9.7, Neut % (Auto) 69.3, Lymph % (Auto) 24.3, [place] % (Auto) 5.0, Eos % (Auto) 0.4, Baso % (Auto) 0.6, Neut # (Auto) 7.4, Lymph # (Auto) 2.6, [place] # (Auto) 0.5, Eos # (Auto) 0.0, Baso # (Auto) 0.1, Sodium 136, Potassium 4.2, Chloride 98, Carbon Dioxide 27, Anion Gap 15.2 H, BUN 32 H, Creatinine 0.80, Estimated Creat Clear 81, Estimated GFR 76, Est GFR ( Amer) 92, Glucose 157 H, Calcium 9.2, Magnesium 2.1, Total Bilirubin 0.8, AST 399 H*, ALT 304 H*, Alkaline Phosphatase 101, Troponin I < 0.01, NT-Pro-B Natriuret Pep < 20.0, Total Protein 8.2, Albumin 4.9, Globulin 3.3 H, Albumin/Globulin Ratio 1.5, Lipase 337 H, HCV Ab [place] w/Rflx PCR Qn Negative, HIV Ag/Ab Combo Qual Negative 01/20/25 16:45: Urine Color Yellow, Urine Appearance Clear, Urine pH 6.0, Ur Specific [place] >= 1.030, Urine Protein Negative, Urine Glucose (UA) Negative, Urine Ketones Negative, Urine Blood Trace-i, Urine Nitrate Negative, Urine Bilirubin Negative, Urine Urobilinogen 0.2, Ur Leukocyte Esterase 1+ A, Urine WBC 10-20, Ur Squamous Epith Cells 10-20, Urine Bacteria 2+ 01/20/25 19:26: Troponin I < 0.01 Orders (Tests/Meds): ED MEDICATIONS Generic Name Dose Route Start Last Admin Trade Name Freq PRN Reason Stop Dose Admin Hydrocodone Bitart/Acetaminophen 1 tab 01/20/25 19:36 Hydrocodone/Apap 5/325 Mg Tablet PO 02/19/25 19:35 Q4HP PRN Mild to Moderate Pain (1-6) Docusate Sodium 100 mg 01/20/25 19:36 Docusate Sodium 100 Mg Capsule PO 02/20/25 08:59 DAILY PRN Constipation Hydromorphone HCl 4 mg 01/20/25 19:36 Hydromorphone 2mg/Ml Syringe IV 02/19/25 19:35 Q2HP PRN Severe Pain (7-10) Lactated Ringer's 1,000 mls @ 999 mls/hr 01/20/25 19:37 Lactated Ringer's 1000 Ml Bag IV 01/20/25 20:37 .Q1H1M ONE Lactated Ringer's 1,000 mls @ 50 mls/hr 01/20/25 19:45 Lactated Ringer's 1000 Ml Bag IV 02/19/25 19:44 .Q20H MARIANNE Pantoprazole Sodium 40 mg 01/20/25 19:36 Pantoprazole 40mg Tablet PO 02/19/25 20:59 HS PRN reflux Sodium Chloride 10 ml 01/20/25 17:03 01/20/25 17:05 Sodium Chloride 0.9% 10ml Syr (Rad Only) IV 02/19/25 17:02 10 ml NEEDED PRN Administration Maintain IV Site Discontinued Medications Generic Name Dose Route Start Last Admin Trade Name Freq PRN Reason Stop Dose Admin Iopamidol 75 ml 01/20/25 17:03 01/20/25 17:05 Iopamidol-370 (76%);100ml Bottle IV 01/20/25 17:04 75 ml ONCE ONE Administration Ketorolac Tromethamine 15 mg 01/20/25 16:07 01/20/25 16:41 Ketorolac 30mg/Ml Vial IV 01/20/25 16:08 15 mg ONCE ONE Administration Methylprednisolone Sodium Succinate 125 mg 01/20/25 18:24 01/20/25 18:27 Methylprednisolone Sod Succ 125mg Vial IV 01/20/25 18:25 125 mg ONCE ONE Administration Ondansetron HCl 4 mg 01/20/25 16:07 01/20/25 16:41 Ondansetron 4mg/2ml Vial IV 01/20/25 16:08 4 mg ONCE ONE Administration ORDERS Category Date Time Status CT abdomen pelvis w con Stat Cat Scan 01/20/25 16:06 Completed Gastroenterology Consult [Consult to Gastroenterology] Cons 01/20/25 19:36 Active [CONS] Routine POCUS Point of Care (ER Only) Stat Exams 01/20/25 17:35 Completed Complete Blood Count Auto Diff AMLAB Lab 01/21/25 06:00 Ordered Complete Blood Count Auto Diff Stat Lab 01/20/25 16:26 Completed Comprehensive Metabolic Panel AMLAB Lab 01/21/25 06:00 Ordered Comprehensive Metabolic Panel Stat Lab 01/20/25 16:26 Completed HIV Combo Routine Lab 01/20/25 16:26 Completed Hepatitis C Ab Qual. W/ RFX Routine Lab 01/20/25 16:26 Completed Lactic Acid Stat Lab 01/20/25 19:47 Received Lipase Stat Lab 01/20/25 16:26 Completed Lipid Panel AMLAB Lab 01/21/25 06:00 Ordered Magnesium Stat Lab 01/20/25 16:26 Completed NT Pro Brain Natriuretic Pep. Stat Lab 01/20/25 16:26 Completed Phosphorous AMLAB Lab 01/21/25 06:00 Ordered Troponin I Q3H Lab 01/20/25 19:26 Completed Troponin I Q3H Lab 01/20/25 22:15 Ordered Troponin I Stat Lab 01/20/25 16:26 Completed Urinalysis and Microscopic Stat Lab 01/20/25 16:45 Completed Urine Culture Stat Micro 01/20/25 16:45 Received ECG Data Tracing #1: I reviewed this ECG and interpreted as documented below: (Sinus rhythm 73 bpm with [place] 194, QRS 93, QTc 416. Normal axis no acute ischemic change) Medical Decision Narrative: 49-year-old female presents emergency department with nausea and abdominal pain, and a syncopal episode, differential diagnose include but not limited to, vasovagal syncope, situational syncope, cardiogenic syncope, orthostatic hypotension, acute liver failure, cholecystitis, choledocholithiasis, cholelithiasis, bowel obstruction, ileitis, colitis, among others. I discussed this patient's case with the attending physician Will obtain basic laboratory studies, lactic acid level, lipase level, magnesium level, proBNP, troponin, urinalysis, EKG, CT and pelvis with contrast, and will give 15 mg IV Toradol and 4 mg Zofran for pain and nausea. CBC unremarkable CMP is notable for elevated BUN at 32, AST is elevated at 399, ALT is elevated at 304 Lipase is elevated at 337 Troponin is less than 0.01, proBNP within normal limits UA is notable for 1+ leukocyte Estrace, negative nitrites, trace hematuria. Obtain POCUS bedside ultrasound of the right upper quadrant. Will also reach out to outside hospital/emergency department to obtain the patient's transaminase levels from last night when she was seen at outside hospital. I reviewed the patient's CT abdomen pelvis with contrast along with the corresponding radiologic report. I reviewed the patient's records from outside facility, patient also had abdomen pelvis contrast CT performed yesterday, which showed no acute abdominal/pelvic abnormality, did show medium hiatal hernia. Examination as noted from outside facility last night were elevated with an AST at 380, and ALT at 297, so slow uptrend of the patient's transaminases. Discussed this patient's case with the on-call/reading radiologist at approximately 6:18 PM, gave him additional clinical information/history as I obtain records from outside facility, he reread the scans and still believes that the pancreas and biliary tree an unremarkable appearance. Will give 125 mg IV Solu-Medrol and pursue hepatitis type pathology. Limited RUQ ultrasound Indication: [-Abdominal pain -Nausea Identified structures: -Gallbladder -Gallbladder wall -Common bile duct -Liver Findings: Sonographic Guajardo sign: absent Absent Gallstones: Absent Sludge: Absent Pericholecystic fluid: Absent Maximal GB wall thickness (mm): Normal is </= 3mm Normal Common bile duct width (mm): Normal is </= 6mm Normal Gallbladder width (cm): Normal is < 4cm Normal Gallbladder length (cm): Normal is < 10cm Normal Impression: -Normal gallbladder Images were saved to permanent archive The study was technically adequate CPT 36232-88 This study was performed by me, and I personally interpreted all images/videos. Based on my clinical judgement, these images were adequate/inadequate and did/did not necessitate further imaging. I discussed this patient's case with the hospitalist Dr. Trevizo at 7:15 PM he is in agreement with the current treatment plan/admission plan. Will start gentle 1 L LR IV. I was consulted by the RODOLFO, and we discussed the complexity of the problems being addressed. I approved the treatment and management plan for this patient's care in the Emergency Department, thus performing a substantive portion of the medical decision making. Anoop Rees MD Critical Care <FRANCISCO Lua - Last Filed: 01/20/25 19:45> Critical Care Time Critical Care Time: No
[2025-01-20 16:40] LABS: Hematocrit 39.9 % (37.0-47.0); Hemoglobin 13.5 g/dL (12.2-16.2); Immature Granulocytes % 0.4 %; Mean Corpuscular HGB Conc 33.8 g/dL (31.8-35.4); Mean Corpuscular Hemoglobin 30.1 pg (27.0-31.2); Mean Corpuscular Volume 89.1 fl (81-99); Nucleated Red Blood Cells % 0 %; Platelet Count 356 K/mm3 (142-424); Red Blood Count 4.48 M/mm3 (4.20-5.40); Red Cell Distribution Width-SD 41.1 fL; White Blood Count 10.7 K/mm3 (4.8-10.8)
[2025-01-20] MEDS: ONDANSETRON 4MG/2ML VIAL 4 MG IV ×2 (16:41→22:07)
[2025-01-20] MEDS: KETOROLAC 30MG/ML VIAL 15 MG IV (16:41)
--- NOTE | 2025-01-20 16:48 | ECG_ITS ---
APPROVED REPORT Exam: Resting ECG HR:73 bpm ECG Measurements Heart Rate 73 AXES DE 184 P 72 QRSd 93 QRS 65 QT 390 T 66 QTc 416 Conclusion SINUS RHYTHM NORMAL ECG Electronically signed by : CARMEN CAMPOS, 01/24/2025 14:09:12
[2025-01-20 16:50] LABS: Albumin Level 4.9 g/dl (3.5-5.0); Chloride 98 mmol/L (98-107); Potassium 4.2 mmoL/L (3.5-5.1); Sodium 136 mmol/L (136-145)
[2025-01-20 16:52] LABS: Blood Urea Nitrogen 32 mg/dl (7-17); Creatinine Clearance Estimated 81 mL/min (50-200); Creatinine,Serum 0.80 mg/dl (0.52-1.04); Estimated Glomerular Filt Rate 76 ml/min (>60); GFR (African American) 92 ML/MIN (>60)
[2025-01-20 16:53] LABS: Alanine Aminotransferase 304 U/L (12-78); Albumin/Globulin Ratio 1.5 (1.1-1.8); Alkaline Phosphatase 101 U/L (38-126); Anion Gap 15.2 mEq/L (5-15); Aspartate Amino Transferase 399 U/L (14-36); Bilirubin,Total 0.8 mg/dl (0.2-1.3); Calcium 9.2 mg/dl (8.4-10.2); Carbon Dioxide 27 mmol/L (22.0-30.0); Globulin 3.3 g/dL (1.3-3.2); Glucose 157 mg/dl (74-100); Lipase 337 U/L (23-300); Magnesium 2.1 mg/dl (1.6-2.3); Total Protein,Serum 8.2 g/dl (6.3-8.2)
[2025-01-20 16:58] LABS: Microscopic, Urine URINE MICROSCOPIC (MICROSCOPIC)
[2025-01-20 16:59] LABS: Bilirubin,Urine Negative (Negative); Color,Urine YELLOW (Yellow); Glucose,Urine (UA) Negative (Negative); Ketones,Urine Negative (Negative); Leukocyte Esterase,Urine 1+ (Negative); PH,Urine 6.0 (5.0-8.5); Protein,Urine Negative (Negative); Specific Gravity, Urine >= 1.030 (1.005-1.030); Urobilinogen,Urine 0.2 EU/dl (0.2)
[2025-01-20 17:02] LABS: NT Pro Brain Natriuretic Pep. < 20.0 pg/mL (0-125)
[2025-01-20] MEDS: IOPAMIDOL-370 (76%);100ML BOTTLE 75 ML IV (17:05)
[2025-01-20] MEDS: SODIUM CHLORIDE 0.9% 10ML SYR (RAD ONLY) 10 ML IV (17:05)
[2025-01-20 17:12] LABS: Troponin I < 0.01 ng/ml (0.00-0.034)
[2025-01-20 17:18] LABS: Bacteria,Urine 2+ /lpf
--- NOTE | 2025-01-20 17:50 | PC.NURSE ---
Called Robbie for lab reports faxed over from lastnight
--- NOTE | 2025-01-20 18:09 | PC.NURSE ---
Received Medical records from Dr. Cabrera Avalos reviewing now
[2025-01-20] MEDS: METHYLPREDNISOLONE SOD SUCC 125MG VIAL 125 MG IV (18:27)
--- NOTE | 2025-01-20 18:29 | PC.NURSE ---
Provider @ bedside w/ US
[2025-01-20 18:35] LABS: Hepatitis C Ab Qual. W/ RFX NEGATIVE (Negative)
--- NOTE | 2025-01-20 19:28 | PC.NURSE ---
repeat trop drawn and sent to the lab at this time.
[2025-01-20 20:06] LABS: Troponin I < 0.01 ng/ml (0.00-0.034)
--- NOTE | 2025-01-20 20:08 | PC.NURSE ---
Patient arrived to floor via wheelchair from ED at 20:06.
[2025-01-20] MEDS: LACTATED RINGERS 1000ML 1,000 ML 999 ML IV (20:32)
--- NOTE | 2025-01-20 20:36 | EXP.HP ---
History of Present Illness *Admission Date: 01/20/25 *Reason for visit:: pancreatitis *History of present illness: 49-year-old female presents the emergency department with a 4-day history of diffuse abdominal pain, nausea was seen in [place] last night for a migraine type headache . they performed neuroimaging studies all of which were negative, treated her with Reglan, Toradol/migraine cocktail. she was told that her liver enzymes , were elevated. She does not know how high her liver enzymes were recorded outside facility. Today she states she was at work, experienced a severe wave of nausea and pain , enough so that it made her pass out , patient states that this was unwitnessed, she does state that she felt it coming on, she is unsure of how long she was out for, thus prompted her emergency department visit. Patient is a former smoker, denies any alcohol or drug use, other past medical history consist of migraines, ongoing pituitary tumor of unknown type, history of total thyroidectomy, celiac disease, peripheral artery disease, history of vasovagal syncope, COPD, GERD. Initial triage vitals unremarkable. Hospitalist consulted for admission for pancreatitis and transaminitis of unknown etiology History independently obtained. Laboratory diagnostic evaluation independently interpreted. Case discussed with ER physician. Old and outside records reviewed. [facility] Disclaimer: The information contained in this section may have been updated after the patient was seen, as this information can be updated by other users. Medical History Migraine Primary hypertension Pituitary adenoma Vasovagal attack Celiac disease PAD (peripheral artery disease) Dyspnea COPD (chronic obstructive pulmonary disease) Ex-smoker Sinus bradycardia Left arm pain Chest pain Post-surgical hypothyroidism Migraine equivalent syndrome Pituitary microadenoma History of thyroid cancer Pituitary tumor Facial rash Surgical History History of thyroidectomy Family History Other No significant family history Social History (Updated 01/13/25 @ 15:02 by Alesia Painting MA) Smoking Status: Former smoker alcohol intake: never substance use type: denies use current occupational status: employed Travel in the last 8 weeks?: None Have you lived/traveled outside US in past 30 days?: No Contact w/someone who lives/traveled outside US past 30 days?: No Exposure to someone with infectious disease in past 14 days?: No Do you have a fever (greater than 100.4 F or 38 C)?: No Have you tested positive for COVID-19?: No Exposed to someone with COVID-19 in past 14 days?: No Do you have a sore throat?: No Do you have a cough?: No Do you have any weakness?: No Do you have any diarrhea?: No Are you experiencing any unusual bleeding?: No Do you have any muscle aches/pain?: No Do you have any abdominal pain?: No Are you experiencing loss of taste or smell?: No Other Medical History Have you received the Flu Vaccine for this season: No Have you received the Pneumonia Vaccine: No Review of Systems Review of Systems Review of systems:: pertinent systems reviewed and negative unless documented below Constitutional Constitutional: Reports system reviewed and no additional complaints, except as documented Eyes Eyes: Reports system reviewed and no additional complaints, except as documented *Cardiovascular Cardiovascular: Reports system reviewed and no additional complaints, except as documented *Respiratory Respiratory: Reports system reviewed and no additional complaints, except as documented *Gastrointestinal Gastrointestinal: Reports system reviewed and no additional complaints, except as documented, Reports abdominal pain, Reports cramping and Reports nausea *Genitourinary Genitourinary: Reports system reviewed and no additional complaints, except as documented *Musculoskeletal Musculoskeletal: Reports system reviewed and no additional complaints, except as documented *Neurologic Neurologic: Reports system reviewed and no additional complaints, except as documented Meds Home Medications and Allergies Home Medications ?Medication ?Instructions ?Recorded ?Confirmed ?Type albuterol sulfate 90 mcg/actuation 2 puff inhalation Q4H #8.5 grams 09/13/24 01/13/25 Rx aerosol inhaler cyclobenzaprine 5 mg tablet 5 mg PO HS PRN muscle spasm #90 09/13/24 01/13/25 Rx tabs famotidine 40 mg tablet (Pepcid) 40 mg PO BID #180 tabs 09/13/24 01/13/25 Rx levothyroxine 88 mcg tablet 88 mcg PO DAILY #90 tabs 09/13/24 01/13/25 Rx (Synthroid) rimegepant 75 mg disintegrating 75 mg PO Q OTHER DAY #15 tabs 09/13/24 01/13/25 Rx tablet (Nurtec ODT) galcanezumab-gnlm 120 mg/mL See Rx Instructions .Route 09/20/24 01/13/25 Rx subcutaneous pen injector .COMPLEX #1 mL (Emgality Pen) hydrocodone 5 mg-acetaminophen 325 See Rx Instructions PO BID PRN 01/20/25 01/20/25 Rx mg tablet pain #30 tabs New Prescriptions to Start Prescriptions: Allergies Allergy/AdvReac Type Severity Reaction Status Date / Time morphine Allergy Intermediate Nausea Verified 01/13/25 14:56 Penicillins Allergy Intermediate Unknown Verified 01/13/25 14:56 allergy reaction Sulfa (Sulfonamide Allergy Intermediate Unknown Verified 01/13/25 14:56 Antibiotics) allergy reaction clindamycin AdvReac Severe Verified 01/13/25 14:56 escitalopram AdvReac Intermediate Unknown Verified 01/13/25 14:56 allergy reaction Exam Data for Last 24 hours Vital signs and Labs for Last 24 Hours: Temp Pulse Resp BP Pulse Ox O2 Del Method 98.6 F 72 16 146/83 H 99 Room Air 01/20/25 20:01 01/20/25 20:01 01/20/25 20:01 01/20/25 20:01 01/20/25 20:00 01/20/25 20:01 Laboratory Results - last 24 hr 01/20/25 16:26: WBC 10.7, RBC 4.48, Hgb 13.5, Hct 39.9, MCV 89.1, MCH 30.1, MCHC 33.8, RDW 12.5, Plt Count 356, MPV 9.7, Neut % (Auto) 69.3, Lymph % (Auto) 24.3, [place] % (Auto) 5.0, Eos % (Auto) 0.4, Baso % (Auto) 0.6, Neut # (Auto) 7.4, Lymph # (Auto) 2.6, [place] # (Auto) 0.5, Eos # (Auto) 0.0, Baso # (Auto) 0.1, Sodium 136, Potassium 4.2, Chloride 98, Carbon Dioxide 27, Anion Gap 15.2 H, BUN 32 H, Creatinine 0.80, Estimated Creat Clear 81, Estimated GFR 76, Est GFR ( Amer) 92, Glucose 157 H, Calcium 9.2, Magnesium 2.1, Total Bilirubin 0.8, AST 399 H*, ALT 304 H*, Alkaline Phosphatase 101, Troponin I < 0.01, NT-Pro-B Natriuret Pep < 20.0, Total Protein 8.2, Albumin 4.9, Globulin 3.3 H, Albumin/Globulin Ratio 1.5, Lipase 337 H, HCV Ab [place] w/Rflx PCR Qn Negative, HIV Ag/Ab Combo Qual Negative 01/20/25 16:45: Urine Color Yellow, Urine Appearance Clear, Urine pH 6.0, Ur Specific [place] >= 1.030, Urine Protein Negative, Urine Glucose (UA) Negative, Urine Ketones Negative, Urine Blood Trace-i, Urine Nitrate Negative, Urine Bilirubin Negative, Urine Urobilinogen 0.2, Ur Leukocyte Esterase 1+ A, Urine WBC 10-20, Ur Squamous Epith Cells 10-20, Urine Bacteria 2+ 01/20/25 19:26: Troponin I < 0.01 01/20/25 19:47: Lactate 0.8 I & O for Last 24 hours: Intake & Output 01/17/25 01/18/25 01/19/25 01/20/25 23:59 23:59 23:59 23:59 Weight 61.235 kg Constitutional Constitutional: no acute distress *Routine HEENT Exam Head: Present normocephalic Eye: Present EOMI and PERRL ENT: Present mucous membranes moist *Routine Neck Exam Neck: Present supple; Absent lymphadenopathy *Routine Respiratory Exam Respiratory: Present CTA bilaterally *Routine Cardiovascular Exam Cardiovascular: Present RRR *Routine Abdominal Exam Abdominal: Present soft and normoactive bowel sounds; Absent tenderness *Routine Rectal Exam Rectal:: deferred *Routine Genitalia Exam Genitalia:: deferred *Routine Extremities Exam Extremities: Absent cyanosis, clubbing or edema *Routine Skin Exam Skin: Present warm; Absent rash *Routine Neurological Exam Neurological: Present alert and oriented X3 Assessment and Plan *Assessment and plan (1) Elevated transaminase level: Status: Acute Category: Medical Code(s): R74.01 - Elevation of levels of liver transaminase levels (2) Abdominal pain: Status: Acute Category: Medical Code(s): R10.9 - Unspecified abdominal pain (3) History of thyroid cancer: Status: Acute Category: Medical Code(s): Z85.850 - Personal history of malignant neoplasm of thyroid (4) History of thyroidectomy: Status: Acute Category: Surgical Code(s): Z98.890 - Other specified postprocedural states; Z90.89 - Acquired absence of other organs (5) Migraine equivalent syndrome: Status: Acute Category: Medical Code(s): G43.109 - Migraine with aura, not intractable, without status migrainosus (6) PAD (peripheral artery disease): Status: Acute Category: Medical Code(s): I73.9 - Peripheral vascular disease, unspecified (7) Pancreatitis: Status: Acute Category: Medical Code(s): K85.90 - Acute pancreatitis without necrosis or infection, unspecified Plan 49-year-old female presenting with syncope episode secondary to pancreatitis and transaminitis. Imaging revealed no stone, currently uncertain etiology of her lab abnormalities. Will consult gastroenterology Pancreatitis - Lactated Ringer's - ruq - N.p.o. - Supportive management - GI consult Syncope, likely vasovagal - Echo - Telemetry Hypothyroidism - Synthroid
[2025-01-20] MEDS: LACTATED RINGERS 1000ML 1,000 ML 100 ML IV (21:41)
[2025-01-20] MEDS: HYDROCODONE/APAP 5/325 MG TABLET 1 TAB PO (22:06)
[2025-01-20 22:55] LABS: Troponin I < 0.01 ng/ml (0.00-0.034)
[2025-01-21] VITALS: BP 115/58; PULSE 61; PULSE 70; RESP 14; TEMP 36.4; O2SAT 97
--- NOTE | 2025-01-21 | US_ITS ---
FINAL REPORT CLINICAL HISTORY: TRANSAMINITIS -- PANCREATITIS COMPARISON: None FINDINGS: Sonographic images of the right upper quadrant were obtained. The pancreas is partially obscured. There is mild increased echogenicity of the liver probably due to fatty infiltration. There is a trace amount of sludge in the dependent portion of the gallbladder. The gallbladder wall is normal thickness. There is no evidence of biliary ductal dilatation. The common duct measures 4 mm. Right kidney measures 9.6 x 3.8 x 6.2 cm. There is no hydronephrosis. There are two echogenic non-shadowing foci in the right kidney measuring up to 8 mm in diameter. These may be related to angiomyolipomas.. IMPRESSION: Minimal sludge in the gallbladder. Mild fatty liver. 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 Reviewed, Interpreted and Dictated by Sukhi Drew MD Transcribed by Kelly Dodd Authenticated and [facility]
[2025-01-21 04:00] VITALS: BP 127/56; PULSE 64; RESP 16; TEMP 36.6; O2SAT 100; BMI 20.7
--- NOTE | 2025-01-21 04:09 | PC.NURSE ---
Pt was admitted from the ER for abdominal pain, elevated liver enzymes, and pancreatitis. Pt has been NPO since arrival to floor. Pt recieving LR per SEP. Pt complained of pain and nausea once, pt medicated per SEP. No further concerns voiced at this time. Pt resting with call guillory in reach. Plan of care ongoing.
--- NOTE | 2025-01-21 04:13 | PC.NURSE ---
Pt alert and oriented to self and place. Pt is on RA. Pt is on telemetry, pt has been afin w/ bradycardia on telemetry. Pt has set the bed alarm off twice, caught by staff before ambulating. Pt did ambulate to the Bathroom and was continent both times. No further concerns at this time. Pt resting with call guillory in reach. Plan of care ongoing.
[2025-01-21 05:00] VITALS: PULSE 60
[2025-01-21] MEDS: ONDANSETRON 4MG/2ML VIAL 4 MG IV (06:11)
[2025-01-21 06:12] LABS: Hematocrit 37.9 % (37.0-47.0); Hemoglobin 12.7 g/dL (12.2-16.2); Immature Granulocytes % 0.2 %; Mean Corpuscular HGB Conc 33.5 g/dL (31.8-35.4); Mean Corpuscular Hemoglobin 29.9 pg (27.0-31.2); Mean Corpuscular Volume 89.2 fl (81-99); Nucleated Red Blood Cells % 0 %; Platelet Count 352 K/mm3 (142-424); Red Blood Count 4.25 M/mm3 (4.20-5.40); Red Cell Distribution Width-SD 40.4 fL; White Blood Count 9.3 K/mm3 (4.8-10.8)
[2025-01-21 06:22] LABS: Alanine Aminotransferase 245 U/L (12-78); Albumin Level 4.0 g/dl (3.5-5.0); Albumin/Globulin Ratio 1.4 (1.1-1.8); Alkaline Phosphatase 88 U/L (38-126); Anion Gap 10.7 mEq/L (5-15); Aspartate Amino Transferase 223 U/L (14-36); Bilirubin,Total 0.8 mg/dl (0.2-1.3); Blood Urea Nitrogen 20 mg/dl (7-17); Calcium 9.7 mg/dl (8.4-10.2); Carbon Dioxide 26 mmol/L (22.0-30.0); Chloride 101 mmol/L (98-107); Cholesterol 173 mg/dl (140-200); Creatinine Clearance Estimated 106 mL/min (50-200); Creatinine,Serum 0.60 mg/dl (0.52-1.04); Estimated Glomerular Filt Rate 106 ml/min (>60); GFR (African American) 128 ML/MIN (>60); Globulin 2.8 g/dL (1.3-3.2); Glucose 145 mg/dl (74-100); HDL Cholesterol 68 mg/dl (40-60); Phosphorous 3.6 mg/dl (2.5-4.5); Potassium 4.7 mmoL/L (3.5-5.1); Sodium 133 mmol/L (136-145); Total Protein,Serum 6.8 g/dl (6.3-8.2); Triglycerides 45 mg/dl (30-150)
[2025-01-21 08:00] VITALS: BP 115/61; PULSE 75; RESP 16; TEMP 36.5; O2SAT 100
[2025-01-21] MEDS: LEVOTHYROXINE 88MCG (0.088MG) TAB 88 MCG PO (08:18)
[2025-01-21] MEDS: LACTATED RINGERS 1000ML 1,000 ML 100 ML IV (08:18)
--- NOTE | 2025-01-21 10:02 | PC.NURSE ---
Patient was off floor to ultrasound during 1000 checks.
[2025-01-21] MEDS: HYDROCODONE/APAP 5/325 MG TABLET 1 TAB PO (10:25)
[2025-01-21 12:00] VITALS: BP 125/57; PULSE 56; RESP 16; TEMP 36.5; O2SAT 99
--- NOTE | 2025-01-21 12:45 | EXP.GE.CONS ---
History of Present Illness *Admission Date: 01/20/25 *History of present illness: Mrs. Dutton is a 49-year-old female who presented to the ED yesterday with diffuse abdominal pain and nausea. This had been gone Monday (4 days ago) and she has not had this previously. She reported generalized abdominal pain. She had no associated vomiting or diarrhea. She reported no abdominal distention or swelling. She had no muscle aches. She did report some dizziness and lightheadedness. She also states that it has been hotter than usual at work and she felt that she was getting dehydrated. She does state that her abdominal pain became more concentrated in the lower abdomen. The patient has had prior and appendectomy. She reports no gassiness or bloating. She has had no melena, bright red blood per rectum or weight loss.. She reports regular bowel function. The patient has never had an endoscopy or colonoscopy (for screening). Of greatest note, her lab work did show a spike in her liver chemistries with ALT 304 and AST 399 on initial labs. Additionally her lipase was mildly elevated at 337. Imaging of the abdomen including CT scan showed no acute abnormalities with normal biliary system and no gallbladder wall thickening. The pancreas was normal with no ductal dilation. Her subsequent abdominal ultrasound this morning showed minimal sludge in the gallbladder with mild fatty liver. The patient's liver chemistries have declined this morning. The patient has had some relief with rehydration, Zofran and analgesics/opiates. [facility] Disclaimer: The information contained in this section may have been updated after the patient was seen, as this information can be updated by other users. Medical History (Updated 01/21/25 @ 12:52 by Walt Hernandez II, MD) Transient ischemic attack (TIA) Migraine Primary hypertension Pituitary adenoma Vasovagal attack Celiac disease PAD (peripheral artery disease) Dyspnea COPD (chronic obstructive pulmonary disease) Ex-smoker Sinus bradycardia Left arm pain Chest pain Post-surgical hypothyroidism Migraine equivalent syndrome Pituitary microadenoma History of thyroid cancer Pituitary tumor Facial rash Surgical History History of thyroidectomy Family History (Updated 01/20/25 @ 20:45 by Frederic Mcintyre RN) Other Alcoholism syndrome No significant family history Stroke Social History Smoking Status: Former smoker alcohol intake: never substance use type: denies use current occupational status: employed Travel in the last 8 weeks?: None Have you lived/traveled outside US in past 30 days?: No Contact w/someone who lives/traveled outside US past 30 days?: No Exposure to someone with infectious disease in past 14 days?: No Do you have a fever (greater than 100.4 F or 38 C)?: No Have you tested positive for COVID-19?: No Exposed to someone with COVID-19 in past 14 days?: No Do you have a sore throat?: No Do you have a cough?: No Do you have any weakness?: No Do you have any diarrhea?: No Are you experiencing any unusual bleeding?: No Do you have any muscle aches/pain?: No Do you have any abdominal pain?: No Are you experiencing loss of taste or smell?: No Review of Systems *Neurologic Neurologic: Reports system reviewed and no additional complaints, except as documented Meds Home Medications and Allergies Home Medications ?Medication ?Instructions ?Recorded ?Confirmed ?Type cyclobenzaprine 5 mg tablet 5 mg PO HS PRN muscle spasm #90 09/13/24 01/20/25 Rx tabs famotidine 40 mg tablet (Pepcid) 40 mg PO BID #180 tabs 09/13/24 01/20/25 Rx levothyroxine 88 mcg tablet 88 mcg PO DAILY #90 tabs 09/13/24 01/20/25 Rx (Synthroid) albuterol sulfate 90 mcg/actuation 2 puff inhalation Q4H PRN 01/20/25 01/20/25 History aerosol inhaler Shortness of Air galcanezumab-gnlm 120 mg/mL 120 mg SQ MONTHLY migraines 01/20/25 01/20/25 History subcutaneous pen injector (Emgality Pen) hydrocodone 5 mg-acetaminophen 325 1 tab PO DAILY PRN Migraines 01/20/25 01/20/25 History mg tablet rimegepant 75 mg disintegrating 75 mg PO NEEDED PRN Migraines 01/20/25 01/21/25 History tablet (Nurtec ODT) New Prescriptions to Start Prescriptions: Allergies Allergy/AdvReac Type Severity Reaction Status Date / Time morphine Allergy Intermediate Nausea Verified 01/13/25 14:56 Penicillins Allergy Intermediate Unknown Verified 01/13/25 14:56 allergy reaction Sulfa (Sulfonamide Allergy Intermediate Unknown Verified 01/13/25 14:56 Antibiotics) allergy reaction clindamycin AdvReac Severe Verified 01/13/25 14:56 escitalopram AdvReac Intermediate Unknown Verified 01/13/25 14:56 allergy reaction Exam (Inpt) Vital signs and Labs for Last 24 Hours: Temp Pulse Resp BP Pulse Ox O2 Del Method 97.7 F 56 L 16 125/57 L 99 Room Air 01/21/25 12:00 01/21/25 12:00 01/21/25 12:00 01/21/25 12:00 01/21/25 12:00 01/21/25 12:00 Laboratory Results - last 24 hr 01/20/25 16:26: WBC 10.7, RBC 4.48, Hgb 13.5, Hct 39.9, MCV 89.1, MCH 30.1, MCHC 33.8, RDW 12.5, Plt Count 356, MPV 9.7, Neut % (Auto) 69.3, Lymph % (Auto) 24.3, [place] % (Auto) 5.0, Eos % (Auto) 0.4, Baso % (Auto) 0.6, Neut # (Auto) 7.4, Lymph # (Auto) 2.6, [place] # (Auto) 0.5, Eos # (Auto) 0.0, Baso # (Auto) 0.1, Sodium 136, Potassium 4.2, Chloride 98, Carbon Dioxide 27, Anion Gap 15.2 H, BUN 32 H, Creatinine 0.80, Estimated Creat Clear 81, Estimated GFR 76, Est GFR ( Amer) 92, Glucose 157 H, Calcium 9.2, Magnesium 2.1, Total Bilirubin 0.8, AST 399 H*, ALT 304 H*, Alkaline Phosphatase 101, Troponin I < 0.01, NT-Pro-B Natriuret Pep < 20.0, Total Protein 8.2, Albumin 4.9, Globulin 3.3 H, Albumin/Globulin Ratio 1.5, Lipase 337 H, HCV Ab [place] w/Rflx PCR Qn Negative, HIV Ag/Ab Combo Qual Negative 01/20/25 16:45: Urine Color Yellow, Urine Appearance Clear, Urine pH 6.0, Ur Specific [place] >= 1.030, Urine Protein Negative, Urine Glucose (UA) Negative, Urine Ketones Negative, Urine Blood Trace-i, Urine Nitrate Negative, Urine Bilirubin Negative, Urine Urobilinogen 0.2, Ur Leukocyte Esterase 1+ A, Urine WBC 10-20, Ur Squamous Epith Cells 10-20, Urine Bacteria 2+ 01/20/25 19:26: Troponin I < 0.01 01/20/25 19:47: Lactate 0.8 01/20/25 22:09: Troponin I < 0.01 01/21/25 05:48: WBC 9.3, RBC 4.25, Hgb 12.7, Hct 37.9, MCV 89.2, MCH 29.9, MCHC 33.5, RDW 12.4, Plt Count 352, MPV 9.5, Neut % (Auto) 84.1 H, Lymph % (Auto) 14.2, [place] % (Auto) 1.4 L, Eos % (Auto) 0.0 L, Baso % (Auto) 0.1, Neut # (Auto) 7.8, Lymph # (Auto) 1.3, [place] # (Auto) 0.1, Eos # (Auto) 0.0, Baso # (Auto) 0.0, Sodium 133 L, Potassium 4.7, Chloride 101, Carbon Dioxide 26, Anion Gap 10.7, BUN 20 H D, Creatinine 0.60 D, Estimated Creat Clear 106, Estimated GFR 106, Est GFR ( Amer) 128 D, Glucose 145 H, Calcium 9.7, Phosphorus 3.6, Total Bilirubin 0.8, AST 223 H D, ALT 245 H, Alkaline Phosphatase 88, Total Protein 6.8, Albumin 4.0 D, Globulin 2.8, Albumin/Globulin Ratio 1.4, Triglycerides 45, Cholesterol 173, LDL Cholesterol Direct 63.08 L, VLDL Cholesterol 9, HDL Cholesterol 68 H, Cholesterol/HDL Ratio 2.5 I & O for Labs for Last 24 Hours: Intake & Output 01/18/25 01/19/25 01/20/25 01/21/25 23:59 23:59 23:59 23:59 Intake Total 1000 / 1000 800 / 800 Output Total 100 / 100 1600 / 1600 Balance 900 / 900 -800 / -800 Weight 135 lb 132 lb 6.4 oz Comments:: Normoactive bowel sounds, soft, mild tenderness in the lower quadrants, no rebound or guarding, no masses, no hernias Results Labs 01/21/25 05:48 01/21/25 05:48 Labs: Laboratory Results - last 24 hr 01/20/25 16:26: WBC 10.7, RBC 4.48, Hgb 13.5, Hct 39.9, MCV 89.1, MCH 30.1, MCHC 33.8, RDW 12.5, Plt Count 356, MPV 9.7, Neut % (Auto) 69.3, Lymph % (Auto) 24.3, [place] % (Auto) 5.0, Eos % (Auto) 0.4, Baso % (Auto) 0.6, Neut # (Auto) 7.4, Lymph # (Auto) 2.6, [place] # (Auto) 0.5, Eos # (Auto) 0.0, Baso # (Auto) 0.1, Sodium 136, Potassium 4.2, Chloride 98, Carbon Dioxide 27, Anion Gap 15.2 H, BUN 32 H, Creatinine 0.80, Estimated Creat Clear 81, Estimated GFR 76, Est GFR ( Amer) 92, Glucose 157 H, Calcium 9.2, Magnesium 2.1, Total Bilirubin 0.8, AST 399 H*, ALT 304 H*, Alkaline Phosphatase 101, Troponin I < 0.01, NT-Pro-B Natriuret Pep < 20.0, Total Protein 8.2, Albumin 4.9, Globulin 3.3 H, Albumin/Globulin Ratio 1.5, Lipase 337 H, HCV Ab [place] w/Rflx PCR Qn Negative, HIV Ag/Ab Combo Qual Negative 01/20/25 16:45: Urine Color Yellow, Urine Appearance Clear, Urine pH 6.0, Ur Specific [place] >= 1.030, Urine Protein Negative, Urine Glucose (UA) Negative, Urine Ketones Negative, Urine Blood Trace-i, Urine Nitrate Negative, Urine Bilirubin Negative, Urine Urobilinogen 0.2, Ur Leukocyte Esterase 1+ A, Urine WBC 10-20, Ur Squamous Epith Cells 10-20, Urine Bacteria 2+ 01/20/25 19:26: Troponin I < 0.01 01/20/25 19:47: Lactate 0.8 01/20/25 22:09: Troponin I < 0.01 01/21/25 05:48: WBC 9.3, RBC 4.25, Hgb 12.7, Hct 37.9, MCV 89.2, MCH 29.9, MCHC 33.5, RDW 12.4, Plt Count 352, MPV 9.5, Neut % (Auto) 84.1 H, Lymph % (Auto) 14.2, [place] % (Auto) 1.4 L, Eos % (Auto) 0.0 L, Baso % (Auto) 0.1, Neut # (Auto) 7.8, Lymph # (Auto) 1.3, [place] # (Auto) 0.1, Eos # (Auto) 0.0, Baso # (Auto) 0.0, Sodium 133 L, Potassium 4.7, Chloride 101, Carbon Dioxide 26, Anion Gap 10.7, BUN 20 H D, Creatinine 0.60 D, Estimated Creat Clear 106, Estimated GFR 106, Est GFR ( Amer) 128 D, Glucose 145 H, Calcium 9.7, Phosphorus 3.6, Total Bilirubin 0.8, AST 223 H D, ALT 245 H, Alkaline Phosphatase 88, Total Protein 6.8, Albumin 4.0 D, Globulin 2.8, Albumin/Globulin Ratio 1.4, Triglycerides 45, Cholesterol 173, LDL Cholesterol Direct 63.08 L, VLDL Cholesterol 9, HDL Cholesterol 68 H, Cholesterol/HDL Ratio 2.5 Assessment and Plan *Assessment and plan (1) Elevated transaminase level: Status: Acute Category: Medical Code(s): R74.01 - Elevation of levels of liver transaminase levels (2) Elevated lipase: Status: Acute Category: Medical Code(s): R74.8 - Abnormal levels of other serum enzymes (3) Nausea: Status: Acute Category: Medical Code(s): R11.0 - Nausea (4) Generalized abdominal pain: Status: Acute Category: Medical Code(s): R10.84 - Generalized abdominal pain Plan 1. Generalized abdominal pain with nausea and some associated dizziness and lightheadedness. Symptomatically, she is improving. Her imaging (CAT scan and ultrasound) are relatively normal. She does have the elevated lipase but this certainly does not meet the criteria for acute pancreatitis and there are no pancreatic imaging abnormalities. The patient's initial liver chemistries showed an AST higher than ALT which can occur with other conditions including myocardial disease but her troponins and BNP were normal. Certainly heatstroke can lead to some muscular damage and elevated AST greater than ALT. I do wonder if her condition is very reactive/self-limited related to heat related condition or mild heatstroke. She does not drink alcohol, does not have gallbladder/biliary tract disease, is not on any new medication and does not tie this to food or meals. At the present, she is improving and I would continue to support with rehydration and symptomatic therapy. There has been remarkable drop in her liver chemistries as well. I do feel that this is a self-limited and reactive etiology (i.e. heatstroke but could be viral infection) and certainly not gallstone pancreatitis/choledocholithiasis. I would treat supportively.
--- NOTE | 2025-01-21 13:22 | P.DS_ITS ---
<Statement entered by Joel Stokes MD - 01/21/25 18:46> Rounded on patient after nurse practitioner. Personally examined and interviewed patient. Agree with exam findings and care plan as documented. General Admission date:: 01/20/25 Discharge date: 01/21/25 HPI HPI HPI: Mrs. Dutton is a 49-year-old female who presented to the ED yesterday with diffuse abdominal pain and nausea. This had been gone Monday (4 days ago) and she has not had this previously. She reported generalized abdominal pain. She had no associated vomiting or diarrhea. She reported no abdominal distention or swelling. She had no muscle aches. She did report some dizziness and lightheadedness. She also states that it has been hotter than usual at work and she felt that she was getting dehydrated. She does state that her abdominal pain became more concentrated in the lower abdomen. The patient has had prior and appendectomy. She reports no gassiness or bloating. She has had no melena, bright red blood per rectum or weight loss.. She reports regular bowel function. The patient has never had an endoscopy or colonoscopy (for screening). Of greatest note, her lab work did show a spike in her liver chemistries with ALT 304 and AST 399 on initial labs. Additionally her lipase was mildly elevated at 337. Imaging of the abdomen including CT scan showed no acute abnormalities with normal biliary system and no gallbladder wall thickening. The pancreas was normal with no ductal dilation. Her subsequent abdominal ultrasound this morning showed minimal sludge in the gallbladder with mild fatty liver. The patient's liver chemistries have declined this morning. The patient has had some relief with rehydration, Zofran and analgesics/opiates. Hospital Course Hospital Course Hospital Course: Ms. Dutton is a 49-year-old female who was admitted to the hospital for transaminitis, AST 399, ALT 304; lipase 337. Patient also complained of diffuse abdominal pain, nausea, and vomiting. She was admitted to the medical surgical floor for further monitoring, IV hydration, antiemetic medication, and pain control. #Pancreatitis #Transaminitis ? IV hydration given overnight, patient tolerating oral intake and diet well, complains of slight nausea when eating. Sending Zofran ODT as needed. ? Patient states abdominal pain is mild. ? GI consulted believes elevated liver enzymes likely due to dehydration or viral infection. ? Liver enzyme improvement AST, 223, ALT, 245. ? Patient's abdominal ultrasound showed minimal sludge in the gallbladder, mild fatty liver. Discussed with patient outpatient follow-up for surgery for possible gallbladder removal, patient will follow-up with PCP and if problem persists will be referred to surgery. #Complex migraines #Vasovagal syncope ?Patient states that her migraine is gone. She does not feel lightheaded or dizzy. Telemetry was monitored overnight, no abnormalities noted. ?Continue home medication for migraines Emgality 120 mg subcu monthly, Nurtec ODT 75 as needed #Hypothyroidism ?Continue Synthroid 88 mcg daily. Total time spent on discharge 34 minutes in counseling, documentation, chart review, and direct care with patient. Exam Data for Last 24 hours Vital signs and Labs for Last 24 Hours: Temp Pulse Resp BP Pulse Ox O2 Del Method 97.7 F 56 L 16 125/57 L 99 Room Air 01/21/25 12:00 01/21/25 12:00 01/21/25 12:00 01/21/25 12:00 01/21/25 12:00 01/21/25 12:56 Laboratory Results - last 24 hr 01/20/25 16:26: WBC 10.7, RBC 4.48, Hgb 13.5, Hct 39.9, MCV 89.1, MCH 30.1, MCHC 33.8, RDW 12.5, Plt Count 356, MPV 9.7, Neut % (Auto) 69.3, Lymph % (Auto) 24.3, Owen % (Auto) 5.0, Eos % (Auto) 0.4, Baso % (Auto) 0.6, Neut # (Auto) 7.4, Lymph # (Auto) 2.6, Owen # (Auto) 0.5, Eos # (Auto) 0.0, Baso # (Auto) 0.1, Sodium 136, Potassium 4.2, Chloride 98, Carbon Dioxide 27, Anion Gap 15.2 H, BUN 32 H, Creatinine 0.80, Estimated Creat Clear 81, Estimated GFR 76, Est GFR ( Amer) 92, Glucose 157 H, Calcium 9.2, Magnesium 2.1, Total Bilirubin 0.8, AST 399 H*, ALT 304 H*, Alkaline Phosphatase 101, Troponin I < 0.01, NT-Pro-B Natriuret Pep < 20.0, Total Protein 8.2, Albumin 4.9, Globulin 3.3 H, Albumin/Globulin Ratio 1.5, Lipase 337 H, HCV Ab [place] w/Rflx PCR Qn Negative, HIV Ag/Ab Combo Qual Negative 01/20/25 16:45: Urine Color Yellow, Urine Appearance Clear, Urine pH 6.0, Ur Specific [place] >= 1.030, Urine Protein Negative, Urine Glucose (UA) Negative, Urine Ketones Negative, Urine Blood Trace-i, Urine Nitrate Negative, Urine Bilirubin Negative, Urine Urobilinogen 0.2, Ur Leukocyte Esterase 1+ A, Urine WBC 10-20, Ur Squamous Epith Cells 10-20, Urine Bacteria 2+ 01/20/25 19:26: Troponin I < 0.01 01/20/25 19:47: Lactate 0.8 01/20/25 22:09: Troponin I < 0.01 01/21/25 05:48: WBC 9.3, RBC 4.25, Hgb 12.7, Hct 37.9, MCV 89.2, MCH 29.9, MCHC 33.5, RDW 12.4, Plt Count 352, MPV 9.5, Neut % (Auto) 84.1 H, Lymph % (Auto) 14.2, Owen % (Auto) 1.4 L, Eos % (Auto) 0.0 L, Baso % (Auto) 0.1, Neut # (Auto) 7.8, Lymph # (Auto) 1.3, Owen # (Auto) 0.1, Eos # (Auto) 0.0, Baso # (Auto) 0.0, Sodium 133 L, Potassium 4.7, Chloride 101, Carbon Dioxide 26, Anion Gap 10.7, BUN 20 H D, Creatinine 0.60 D, Estimated Creat Clear 106, Estimated GFR 106, Est GFR ( Amer) 128 D, Glucose 145 H, Calcium 9.7, Phosphorus 3.6, Total Bilirubin 0.8, AST 223 H D, ALT 245 H, Alkaline Phosphatase 88, Total Protein 6.8, Albumin 4.0 D, Globulin 2.8, Albumin/Globulin Ratio 1.4, Triglycerides 45, Cholesterol 173, LDL Cholesterol Direct 63.08 L, VLDL Cholesterol 9, HDL Cholesterol 68 H, Cholesterol/HDL Ratio 2.5 I & O for Last 24 hours: Intake & Output 01/18/25 01/19/25 01/20/25 01/21/25 23:59 23:59 23:59 23:59 Intake Total 1000 / 1000 800 / 800 Output Total 100 / 100 1600 / 1600 Balance 900 / 900 -800 / -800 Weight 61.235 kg 60.056 kg Results Data Completed and Pending Labs on day of discharge: Labs from last 24 hours 01/21/25 01/20/25 01/20/25 05:48 22:09 19:47 WBC 9.3 RBC 4.25 Hgb 12.7 Hct 37.9 MCV 89.2 MCH 29.9 MCHC 33.5 RDW 12.4 Plt Count 352 MPV 9.5 Neut % (Auto) 84.1 H Lymph % (Auto) 14.2 Owen % (Auto) 1.4 L Eos % (Auto) 0.0 L Baso % (Auto) 0.1 Neut # (Auto) 7.8 Lymph # (Auto) 1.3 Owen # (Auto) 0.1 Eos # (Auto) 0.0 Baso # (Auto) 0.0 Sodium 133 L Potassium 4.7 Chloride 101 Carbon Dioxide 26 Anion Gap 10.7 BUN 20 H D Creatinine 0.60 D Estimated Creat Clear 106 Estimated GFR 106 Est GFR ( Amer) 128 D Glucose 145 H Lactate 0.8 Calcium 9.7 Phosphorus 3.6 Magnesium Total Bilirubin 0.8 AST 223 H D ALT 245 H Alkaline Phosphatase 88 Troponin I < 0.01 NT-Pro-B Natriuret Pep Total Protein 6.8 Albumin 4.0 D Globulin 2.8 Albumin/Globulin Ratio 1.4 Triglycerides 45 Cholesterol 173 LDL Cholesterol Direct 63.08 L VLDL Cholesterol 9 HDL Cholesterol 68 H Cholesterol/HDL Ratio 2.5 Lipase Urine Color Urine Appearance Urine pH Ur Specific [place] Urine Protein Urine Glucose (UA) Urine Ketones Urine Blood Urine Nitrate Urine Bilirubin Urine Urobilinogen Ur Leukocyte Esterase Urine WBC Ur Squamous Epith Cells Urine Bacteria HCV Ab [place] w/Rflx PCR Qn HIV Ag/Ab Combo Qual 01/20/25 01/20/25 01/20/25 19:26 16:45 16:26 WBC 10.7 RBC 4.48 Hgb 13.5 Hct 39.9 MCV 89.1 MCH 30.1 MCHC 33.8 RDW 12.5 Plt Count 356 MPV 9.7 Neut % (Auto) 69.3 Lymph % (Auto) 24.3 Owen % (Auto) 5.0 Eos % (Auto) 0.4 Baso % (Auto) 0.6 Neut # (Auto) 7.4 Lymph # (Auto) 2.6 Owen # (Auto) 0.5 Eos # (Auto) 0.0 Baso # (Auto) 0.1 Sodium 136 Potassium 4.2 Chloride 98 Carbon Dioxide 27 Anion Gap 15.2 H BUN 32 H Creatinine 0.80 Estimated Creat Clear 81 Estimated GFR 76 Est GFR ( Amer) 92 Glucose 157 H Lactate Calcium 9.2 Phosphorus Magnesium 2.1 Total Bilirubin 0.8 AST 399 H* ALT 304 H* Alkaline Phosphatase 101 Troponin I < 0.01 < 0.01 NT-Pro-B Natriuret Pep < 20.0 Total Protein 8.2 Albumin 4.9 Globulin 3.3 H Albumin/Globulin Ratio 1.5 Triglycerides Cholesterol LDL Cholesterol Direct VLDL Cholesterol HDL Cholesterol Cholesterol/HDL Ratio Lipase 337 H Urine Color Yellow Urine Appearance Clear Urine pH 6.0 Ur Specific [place] >= 1.030 Urine Protein Negative Urine Glucose (UA) Negative Urine Ketones Negative Urine Blood Trace-i Urine Nitrate Negative Urine Bilirubin Negative Urine Urobilinogen 0.2 Ur Leukocyte Esterase 1+ A Urine WBC 10-20 Ur Squamous Epith Cells 10-20 Urine Bacteria 2+ HCV Ab [place] w/Rflx PCR Qn Negative HIV Ag/Ab Combo Qual Negative DS: Diagnosis Discharge Diagnosis (1) Elevated transaminase level: Status: Acute Code(s): R74.01 - Elevation of levels of liver transaminase levels (2) Elevated lipase: Status: Acute Code(s): R74.8 - Abnormal levels of other serum enzymes (3) Nausea: Status: Acute Code(s): R11.0 - Nausea (4) Generalized abdominal pain: Status: Acute Code(s): R10.84 - Generalized abdominal pain Meds Home Medications and Allergies Home Medications ?Medication ?Instructions ?Recorded ?Confirmed ?Type cyclobenzaprine 5 mg tablet 5 mg PO HS PRN muscle spas m #90 09/13/24 01/20/25 Rx tabs famotidine 40 mg tablet (Pepcid) 40 mg PO BID #180 tab s 09/13/24 01/20/25 Rx levothyroxine 88 mcg tablet 88 mcg PO DAILY #90 tabs 0 09/13/24 01/20/25 Rx (Synthroid) albuterol sulfate 90 mcg/actuation 2 puff inhalation Q 4H PRN 01/20/25 01/20/25 History aerosol inhaler Shortness of Air galcanezumab-gnlm 120 mg/mL 120 mg SQ MONTHLY migraine s 01/20/25 01/20/25 History subcutaneous pen injector (Emgality Pen) hydrocodone 5 mg-acetaminophen 325 1 tab PO DAILY PRN Migraines 01/20/25 01/20/25 History mg tablet rimegepant 75 mg disintegrating 75 mg PO NEEDED PRN Migraines 01/20/25 01/21/25 History tablet (Nurtec ODT) ondansetron 4 mg disintegrating 4 mg PO Q6H PRN nausea and 01/21/25 Rx tablet vomiting #14 tabs New Prescriptions to Start Prescriptions: ondaRhonda Bryant Allergies Allergy/AdvReac Type Severity Reaction Status Date / Time morphine Allergy Intermediate Nausea Verified 01/13/25 14:56 Penicillins Allergy Intermediate Unknown Verified 01/13/25 14:56 allergy reaction Sulfa (Sulfonamide Allergy Intermediate Unknown Verified 01/13/25 14:56 Antibiotics) allergy reaction clindamycin AdvReac Severe Verified 01/13/25 14:56 escitalopram AdvReac Intermediate Unknown Verified 01/13/25 14:56 allergy reaction Discharge Plan Disposition Patient Disposition: Home, Self-Care Condition: Good Follow up Plan Follow up with: Henrique Edwards MD [Primary Care Provider, [facility]] - Enter time for follow up Prescriptions/Medication Reconciliation: New ondansetron 4 mg tablet,disintegrating 4 mg PO Q6H PRN (Reason: nausea and vomiting) Qty: 14 0RF Continued cyclobenzaprine 5 mg tablet 5 mg PO HS PRN (Reason: muscle spasm) Qty: 90 0RF famotidine [Pepcid] 40 mg tablet 40 mg PO BID Qty: 180 3RF levothyroxine [Synthroid] 88 mcg tablet 88 mcg PO DAILY Qty: 90 3RF hydrocodone-acetaminophen 5-325 mg tablet 1 tab PO DAILY PRN (Reason: Migraines ) Rx Instructions: one daily prn severe migraine unrelieved by other medications albuterol sulfate 90 mcg/actuation HFA aerosol inhaler 2 puff inhalation Q4H PRN (Reason: Shortness of Air ) Emgality Pen 120 mg/mL pen injector 120 mg SQ MONTHLY Rx Instructions: ADMINISTER 120 MG( 1 ML) UNDER THE SKIN EVERY MONTH Nurtec ODT 75 mg tablet,disintegrating 75 mg PO NEEDED PRN (Reason: Migraines ) Problem Reconciliation Problems Reviewed?: Yes Patient Discharge Instructions ACTIVITY: Continue current activity DIET: continue same diet Patient Instructions: DI for Pancreatitis Print Language: Maltese Providers Primary Care Provider: Henrique Edwards Admit Provider: Joel Stokes Attending Provider: Joel Stokes
--- NOTE | 2025-01-21 20:41 | CA_ITS ---
APPROVED REPORT EXAM: Comprehensive 2D, Doppler, and color-flow Echocardiogram Hat Blocking Machine Operator: Luana Walker CRT Ht: 5 ft 7 in Wt: 135lbs BSA: 1.71 BP: 146/83 mmHg Indications: syncope, migraines Echo Enhancing Agent Indication: Rule out Shunt Agent(s) / Amount(s) Used: Agitated Saline 4 cc Comments: B/S x 4. Left Ventricle The left ventricle is normal size. The left ventricular systolic function is normal. The left ventricular ejection fraction is within the normal range. There is normal left ventricular wall thickness. There is normal LV segmental wall motion. The left ventricular diastolic function is normal. LVEF is 55%. Right Ventricle The right ventricle is normal size. The right ventricular systolic function is normal. Atria The left atrium size is normal. The right atrium size is normal. There is no Doppler evidence of interatrial shunt. Agitated saline administration demonstrates no evidence of interatrial shunt. Aortic Valve Aortic valve opens well. There is no aortic valvular stenosis. No aortic regurgitation is present. Mitral Valve The mitral valve is normal in structure. No evidence of mitral valve stenosis. Mild mitral regurgitation. Tricuspid Valve Tricuspid valve is grossly normal in structure and function. Trace tricuspid regurgitation. There is insufficient TR jet to estimate RVSP. Pulmonic Valve The pulmonary valve is normal in structure. Trace pulmonic regurgitation. Great Vessels The aortic root is normal in size. IVC is normal in size and collapses >50% with inspiration. Pericardium There is no pericardial effusion. Other Information Study Quality: Adequate Conclusion Normal biventricular systolic function. Mild MR. There is no Doppler evidence of interatrial shunt. Agitated saline administration demonstrates no evidence of interatrial shunt. Electronically signed by : Clari Ruvalcaba MD 01/22/2025 00:00:07
--- NOTE | 2025-01-22 10:24 | SW/DCPLANNER ---
Spoke with patient on the phone. Patient stated that she is still feeling bad. I suggested that she try and see her PCP maybe before her follow up appointment. Patient stated that she is aware of her upcoming appointment. Patient stated that she was able to get her new medicine picked up from clinic pharmacy. Patient stated that she has no concerns or questions at this time. Fernando Carrion
== END 2025-01-21 15:52 | disposition home or self-care (01) ==
LOC: ER 19:19 → 2ND 20:15
PROVIDERS: Physician Assistant; Student in an Organized Health Care Education/Training Program; Admitting Provider Internal Medicine Adolescent Medicine; Emergency Provider Emergency Medicine; PCP Family Medicine; Visit Provider Internal Medicine Adolescent Medicine
DX: K85.90 Acute pancreatitis without necrosis or infection, unspecified (principal); R74.01 Elevation of levels of liver transaminase levels; R55 Syncope and collapse; G43.109 Migraine with aura, not intractable, without status migrainosus; I73.9 Peripheral vascular disease, unspecified; J44.9 Chronic obstructive pulmonary disease, unspecified; K76.0 Fatty (change of) liver, not elsewhere classified; K21.9 Gastro-esophageal reflux disease without esophagitis; E89.0 Postprocedural hypothyroidism; Z87.891 Personal history of nicotine dependence; Z90.89 Acquired absence of other organs; Z85.850 Personal history of malignant neoplasm of thyroid; Z86.73 Personal history of transient ischemic attack (TIA), and cerebral infarction without residual deficits; Z98.890 Other specified postprocedural states; Z88.5 Allergy status to narcotic agent; Z88.2 Allergy status to sulfonamides; Z88.1 Allergy status to other antibiotic agents; Z88.8 Allergy status to other drugs, medicaments and biological substances; Z79.620 Long term (current) use of immunosuppressive biologic; Z79.899 Other long term (current) drug therapy; Z79.890 Hormone replacement therapy; Z88.0 Allergy status to penicillin
CPT/HCPCS: 96361; 96374; 96375 ×2; 36415; 74177; 76705; 80053; 80061; 81001; 83605; 83690; 83735; 83880; 84100; 84484; 85025; 86803; 87086; 87389; 93005; 93306; G0378; J1650; J1885; J2405; J2919; J7120; Q9967

== ENCOUNTER 2025-01-27 15:45 | Outpatient (CLI) | payer BC, SELFPAY ==
[2025-01-27 19:35] LABS: Hematocrit 40.6 % (37.0-47.0); Hemoglobin 13.3 g/dL (12.2-16.2); Immature Granulocytes % 0.7 %; Mean Corpuscular HGB Conc 32.8 g/dL (31.8-35.4); Mean Corpuscular Hemoglobin 30.0 pg (27.0-31.2); Mean Corpuscular Volume 91.6 fl (81-99); Nucleated Red Blood Cells % 0 %; Platelet Count 368 K/mm3 (142-424); Red Blood Count 4.43 M/mm3 (4.20-5.40); Red Cell Distribution Width-SD 43.6 fL; White Blood Count 9.4 K/mm3 (4.8-10.8)
[2025-01-27 20:20] LABS: Lipase 537 U/L (23-300)
--- OUTSIDE RECORDS SUMMARY | 2025-01-28 07:28 | XMS_ITS | Clinical Summary ---
Author Organization [facility] Address [address] [place] [address] Phone Care Team Providers Care Pet Stylist Name Role Phone Henrique Edwards MD Primary Care Provider [phone] Allergies Active Allergy Reactions Criticality Noted Date [...] (HCC) Heartburn Headache(784.0) Thyroid disease Thyroid cancer ([facility]) August 2011 microscopic papillary, [id number] Stage 1 [...] Zoster (1 of 2) 2024 Influenza Vaccine (#1) 2025 7, 07/08/2016 Meningococcal B Vaccine Aged Out No l onger eligible based on patient's age to complete this topic Insurance CHOICE CHOICE CHOICE Advance Directives For more information, please contact: [phone] * Full Code (Latest Code Status on File) Date Activated Date Inactivated Comments 11/28/2020 12:08 PM 11/30/2020 7:56 PM Care Teams Pet Stylist Relationship Specialty Start Date End Date Henrique Edwards MD PCP - General Family Medicine 05/18/21
--- OUTSIDE RECORDS SUMMARY | 2025-01-28 07:28 | XMS_ITS | Clinical Summary ---
Author Organization [facility] Address [address] [place] [id number] Care Team Providers Care Barrel Charrer Name Role Phone Pcp, No Primary Care [...] therelease of HIV test results or diagnoses. [id number] Allergies Active Allergy Reactions Criticality Noted [...] Zoster (1 of 2) 2024 Immunization: Influenza (MyChart) (#1) 2025, 07/08/2016 Insurance [facility] CHOICE Care Teams Barrel Charrer Relationship Specialty Start Date End Date Pcp, No No Address PCP - General 10/18/23
--- OUTSIDE RECORDS SUMMARY | 2025-01-28 07:28 | XMS_ITS | Clinical Summary ---
Author Organization [facility] Address [address] [place] [address] Care Team Providers Care Industrial Cook Name Role Phone Doug Davalos LOLA Primary Care Provider [phone] Immunizations Immunization Administration Dates Next Due Influenza, [...] Treatment Not on file Insurance Care Teams Industrial Cook Relationship Specialty Start Date End Date Doug Davalos APRN [address] [place] [address] PCP - General 12/04/20
[2025-01-29 09:14] LABS: Hepatitis B Surface Antigen Negative (Negative)
== END 2025-01-27 23:59 | disposition home or self-care (01) ==
LOC: LAB.DROPOF 01-28 07:26
PROVIDERS: PCP Family Medicine; Visit Provider Family Medicine
DX: K85.90 Acute pancreatitis without necrosis or infection, unspecified (principal); R10.9 Unspecified abdominal pain; R11.0 Nausea; R74.8 Abnormal levels of other serum enzymes; Z11.59 Encounter for screening for other viral diseases
CPT/HCPCS: 83690; 85025; 87340

== ENCOUNTER 2025-02-10 16:10 | Outpatient (CLI) | payer BC, SELFPAY ==
--- OUTSIDE RECORDS SUMMARY | 2025-02-10 06:30 | XMS_ITS | Encounter Summary ---
Author Organization [facility] Address [address] [place] [id number] Phone [email or web address] Care Team Providers Care Biologist Name Role Phone Unavailable Primary Care Provider Unavailabl e Reason for Visit * Reason Comments Health Center Offerings Return to Work / Duty Encounter Details Date Type Department Care Team (Latest Contact Info) Description 02/10/2025 6:30 AM EDT Clinical Support [address] [place] [address] Jillian Rivera, RN [address] [place] [address] Return to work evaluation (Primary Dx); Acute pancreatitis, unspecified complication status, unspecified pancreatitis type Social History Tobacco Use Types Packs/Day Years Used Date Smoking Tobacco: Former Cigarettes Smokeless Tobacco: Never Depression Answer Date Recorded PHQ Total Score 0 02/10/2025 Stress Answer Date Recorded Stress in your Life Not on file 05/30/2024 Dealing with Stress 3 05/30/2024 Comments Unknown Sex and Gender Information Value Date Recorded Sex Assigned at Not on file Legal Sex 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 female who presents for personal return to work. WD ID: [id number] Employer: [employer] Date of Hire: 05/2024 Cost Center: [id number] Description: Nancy Team: Shift: 1 Full-time GL and #: Maria Guadalupe Pinedaiggs LDW: 01/20/2025 RELEASE: 02/10/2025 PMLOA. Tm has been off work treating for liver issues and pancreatitis. Tm states that she is feeling much better and is ready to return to work. Tm denies dizziness or pain, denies additional concerns. Advised to stay hydrated. Tm has follow up with MD today. Consulter with FRANCISCO Felipe. Triage nurse: Jillian Rivera RN HPI History Reviewed: Allergies Meds Med Hx Surg Hx Objective Visit Vitals BP 115/75 Pulse 77 Temp 98.2 ??F SpO2 97% Smoking Status Former Review of Systems PHQ-9 Total Score: 0 (02/10/2025 6:07 AM) Physical Exam Assessment: No diagnosis found. No orders of the defined types were placed in this encounter. There are no Patient Instructions on file for this visit. documented in this encounter Miscellaneous Notes * Addendum Note - Jillian Rivera RN - 02/10/2025 6:30 AM EDTAddended by: JILLIAN RIVERA on: 02/10/2025 09:54 AM Modules accepted: Level of Service documented in this encounter Plan of Treatment Not on file documented as of this encounter Visit Diagnoses Diagnosis Return to work evaluation- Primary Other specified examination Acute pancreatitis, unspecified complication status, unspecified pancreatitis type documented in this encounter
[2025-02-10 19:53] LABS: Albumin Level 4.5 g/dl (3.5-5.0); Chloride 100 mmol/L (98-107)
[2025-02-10 19:54] LABS: Potassium 3.6 mmoL/L (3.5-5.1); Sodium 133 mmol/L (136-145)
[2025-02-10 19:56] LABS: Blood Urea Nitrogen 15 mg/dl (7-17); Creatinine,Serum 0.70 mg/dl (0.52-1.04); Estimated Glomerular Filt Rate 89 ml/min (>60); GFR (African American) 107 ML/MIN (>60)
[2025-02-10 19:57] LABS: Alanine Aminotransferase 40 U/L (12-78); Albumin/Globulin Ratio 1.7 (1.1-1.8); Alkaline Phosphatase 88 U/L (38-126); Anion Gap 13.6 mEq/L (5-15); Aspartate Amino Transferase 38 U/L (14-36); Bilirubin,Total 1.1 mg/dl (0.2-1.3); Calcium 9.3 mg/dl (8.4-10.2); Carbon Dioxide 23 mmol/L (22.0-30.0); Globulin 2.7 g/dL (1.3-3.2); Glucose 187 mg/dl (74-100); Total Protein,Serum 7.2 g/dl (6.3-8.2)
--- OUTSIDE RECORDS SUMMARY | 2025-02-11 12:25 | XMS_ITS | Clinical Summary ---
Author Organization [facility] Address [address] [place] [address] Care Team Providers Care Electrical Engineering Technician Name Role Phone Doug Davalos LOLA Primary Care Provider [phone] Immunizations Immunization Administration Dates Next Due Influenza, [...] Treatment Not on file Insurance Care Teams Electrical Engineering Technician Relationship Specialty Start Date End Date Doug Davalos APRN [address] [place] [address] PCP - General 12/04/20
--- OUTSIDE RECORDS SUMMARY | 2025-02-11 12:25 | XMS_ITS | Clinical Summary ---
Author Organization [facility] Address [address] [place] [address] Care Team Providers Care Coupon And Bond Collection Clerk Name Role Phone Pcp, No Primary Care [...] therelease of HIV test results or diagnoses. [id number] Allergies Active Allergy Reactions Criticality Noted [...] Immunization: Influenza (MyChart) (#1) 2025, 07/08/2016 Insurance [facility] CHOICE Care Teams Coupon And Bond Collection Clerk Relationship Specialty Start Date End Date Pcp, No No Address PCP - General 10/18/23
--- OUTSIDE RECORDS SUMMARY | 2025-02-11 12:25 | XMS_ITS | Clinical Summary ---
Author Organization [facility] Address [address] [place] [id number] Phone [email or web address] Care Team Providers Care Eight Arm Operator Name Role Phone Unavailable Primary Care Provider Unavailabl e Allergies Active Allergy Reactions Criticality Noted Date Comments Clindamycin 05/04/2022 Escitalopram 12/02/2009 Morphine Anaphylaxis High 12/02/2009 Penicillins 12/02/2009 Sulfa Antibiotics 12/02/2009 Medications albuterol HFA 108 (90 Base) MCG/ACT inhaler Inhale 2 puffs. Active divalproex sprinkle (DEPAKOTE SPRINKLE) 125 MG capsule Take 125 mg by mouth in the morning and 125 mg in the evening. Active Galcanezumab-gnl m (Emgality) 120 MG/ML solution prefilled syringe Inject 120 mg under the skin. Active Emgality 120 MG/ML solution auto-injector 3 Active HYDROcodone-acet aminophen (NORCO) 5-325 MG per tablet TAKE ONE TABLET BY MOUTH ONCE DAILY FOR SEVERE MIGRAIN PAIN 4 Active levothyroxine (SYNTHROID) 88 MCG tablet Take 88 mcg by mouth 1 (one) time each day. 4 Active Nurtec 75 MG tablet dispersible DISSOLVE 1 TABLET ON THE TONGUE 1 TIME NEEDED FOR MIGRAINE HEADACHE 4 Active Active Problems Problem Noted Date Diagnosed Date Pituitary microadenoma 11/28/2020 COPD, mild 10/24/2011 Resolved Problems Problem Noted Date Diagnosed Date Resolved Date Acute pain of left shoulder 05/08/2021 08/30/2023 Cervical pain 05/08/2021 08/30/2023 Headache 04/08/2015 08/30/2023 Complicated migraine 04/08/2015 024 Post-surgical hypothyroidism 09/21/2011 08/30/2023 Thyroid cancer 08/29/2011 08/30/2023 Encounters Date Type Department Care Team Description 02/10/2025 6:30 AM EDT Clinical Support [facility] [place] [address] [address] Jillian Rivera, JAMES Return to work evaluation (Primary Dx); Acute pancreatitis, unspecified complication status, unspecified pancreatitis type from Last 3 Months Social History Tobacco Use Types Packs/Day Years Used Date Smoking Tobacco: Former Cigarettes Smokeless Tobacco: Never Tobacco Cessation:Counseling Given: Not Answered Depression Answer Date Recorded PHQ Total Score 0 02/10/2025 Stress Answer Date Recorded Stress in your Life Not on file 05/30/2024 Dealing with Stress 3 05/30/2024 Comments Unknown Sex and Gender Information Value Date Recorded Sex Assigned at Not on file Legal 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 Gender Identity Not on file Sexual Orientation Not on file Last Filed Vital Signs Vital Sign Reading Time Taken Comments Blood Pressure 115/75 02/10/2025 5:42 AM EDT Pulse 77 02/10/2025 5:42 AM EDT Temperature 36.8 C (98.2 F) 02/10/2025 5:42 AM EDT Respiratory Rate 14 09/05/2024 10:22 AM EST Oxygen Saturation 97% 02/10/2025 5:42 AM EDT Inhaled Oxygen Concentration - - Weight 63.5 kg (140 lb) 09/05/2024 10:22 AM EST Height 170.2 cm (5' 7 ) 09/05/2024 10:22 AM EST Body Mass Index 21.93 09/05/2024 10:22 AM EST Plan of Treatment Health Maintenance Due Date Last Done Comments Dental Cleaning/Exam 1974 HIV Screening 1974 Hepatitis C Screening 1974 Cervical Cancer Screening 1990 Hep B Infection Screening - Triple Screen 1992 Tetanus Diphtheria and Pertussis Immunization (1 - Tdap) 1993 Breast Cancer Screening 2004 Colorectal Cancer Screening 2004 Hepatitis B Immunization (2 of 3 - 19+ 3-dose series) 02/23/2010 01/26/2010 Pneumococcal: Ped (0 to 5 Yrs) and At-Risk Member (6 to 64 Yrs) (2 of 2 - PCV) 07/08/2017 07/08/2016 Covid-19 Immunization (3 - season) 2024 12/02/2020, 11/04/2020 Annual Preventive Exam 08/30/2024 08/30/2023 Zoster Immunization (1 of 2) 2024 Influenza Immunization (#1) 2025 07/08/2016 HIB Immunization Aged Out No longer e ligible based on patient's age to complete this topic HPV Immunization Aged Out No longer e ligible based on patient's age to complete this topic Hepatitis A Immunization Aged Out No longer eligible based on patient's age to complete this topic Polio Immunization Aged Out No longer eligible based on patient's age to complete [place] [address] [place] [address] OPT OUT NO COPAY NB
--- OUTSIDE RECORDS SUMMARY | 2025-02-11 12:25 | XMS_ITS | Clinical Summary ---
Author Organization [facility] Address [address] [place] [address] Phone Care Team Providers Care Fixer Supervisor Name Role Phone Henrique Edwards MD Primary Care Provider [phone] Allergies Active Allergy Reactions Criticality Noted Date [...] (HCC) Heartburn Headache(784.0) Thyroid disease Thyroid cancer ([facility]) August 2011 microscopic papillary, [id number] Stage 1 [...] Advance Directives For more information, please contact: [phone] * Full Code (Latest Code Status on File) Date Activated Date Inactivated Comments 11/28/2020 12:08 PM 11/30/2020 7:56 PM Care Teams Fixer Supervisor Relationship Specialty Start Date End Date Henrique Edwards MD PCP - General Family Medicine 05/18/21
== END 2025-02-10 23:59 | disposition home or self-care (01) ==
LOC: LAB.DROPOF 02-11 12:18
PROVIDERS: PCP Family Medicine; Visit Provider Family Medicine
DX: K85.90 Acute pancreatitis without necrosis or infection, unspecified (principal); R74.01 Elevation of levels of liver transaminase levels; R10.9 Unspecified abdominal pain; R11.0 Nausea; R74.8 Abnormal levels of other serum enzymes; R10.84 Generalized abdominal pain
CPT/HCPCS: 80053